=== PATIENT | female | born 1960 | race Caucasian/White ===

== ENCOUNTER 2020-09-11 06:25 | Outpatient (REF) | payer OTHER, SELFPAY ==
[2020-09-11 11:31] LABS: Alanine Aminotransferase 16 U/L (0-31); Anion Gap 16 (12-20); Aspartate Amino Transferase 13 U/L (5-31); Blood Urea Nitrogen 14 mg/dL (9-16); Calcium 9.2 mg/dL (8.4-10.2); Carbon Dioxide 29 mmol/L (22-29); Chloride 95 mmol/L (96-108); Cholesterol 142 mg/dL; Estimated Glomerular Filt Rate > 60; Glucose Fasting 143 mg/dL (60-99); HDL Cholesterol 52 mg/dL; LDL Cholesterol Calculated 61 mg/dl; Potassium 4.1 mmol/l (3.3-5.1); Sodium 136 mmol/L (135-145); Triglycerides 149 mg/dL
== END 2020-09-11 06:26 | disposition home or self-care (01) ==
LOC: HO.HMGCLDS 06:25
PROVIDERS: PCP Internal Medicine; Visit Provider Internal Medicine
DX: E11.9 Type 2 diabetes mellitus without complications (principal); E78.5 Hyperlipidemia, unspecified; E66.09 Other obesity due to excess calories; Z68.33 Body mass index [BMI] 33.0-33.9, adult
CPT/HCPCS: 80048; 80061; 84450; 84460

== ENCOUNTER 2021-02-19 06:01 | Outpatient (REF) | payer OTHER, SELFPAY ==
[2021-02-19 11:36] LABS: Alanine Aminotransferase 15 U/L (0-31); Anion Gap 17 (12-20); Aspartate Amino Transferase 12 U/L (5-31); Blood Urea Nitrogen 18 mg/dL (9-16); Calcium 9.2 mg/dL (8.4-10.2); Carbon Dioxide 30 mmol/L (22-29); Chloride 95 mmol/L (96-108); Cholesterol 140 mg/dL; Estimated Glomerular Filt Rate > 60; Glucose Fasting 151 mg/dL (60-99); HDL Cholesterol 52 mg/dL; LDL Cholesterol Calculated 59 mg/dl; Potassium 4.2 mmol/L (3.3-5.1); Sodium 138 mmol/L (135-145); Triglycerides 148 mg/dL
[2021-02-19 11:40] LABS: Estimated Average Glucose 151 mg/dL; Hemoglobin A1c % 6.9 %
[2021-02-19 11:58] LABS: Vitamin D 25-OH Total 79.7 ng/mL (>30)
== END 2021-02-19 06:02 | disposition home or self-care (01) ==
LOC: HO.HMGCLDS 06:01
PROVIDERS: PCP Internal Medicine; Visit Provider Internal Medicine
DX: E11.9 Type 2 diabetes mellitus without complications (principal); E78.5 Hyperlipidemia, unspecified; I10 Essential (primary) hypertension
CPT/HCPCS: 36415; 80048; 80061; 82306; 83036; 84450; 84460

== ENCOUNTER 2022-05-14 06:55 | Outpatient (REF) | payer OTHER, SELFPAY ==
[2022-05-14 11:59] LABS: Estimated Average Glucose 148 mg/dL; Hemoglobin A1c % 6.8 %
[2022-05-14 12:18] LABS: Alanine Aminotransferase 20 U/L (0-31); Anion Gap 16 (12-20); Aspartate Amino Transferase 15 U/L (5-31); Blood Urea Nitrogen 19 mg/dL (9-16); Calcium 9.6 mg/dL (8.4-10.2); Carbon Dioxide 28 mmol/L (22-29); Chloride 98 mmol/L (96-108); Cholesterol 150 mg/dL; Estimated Glomerular Filt Rate 57; Glucose Fasting 135 mg/dL (60-99); HDL Cholesterol 56 mg/dL; LDL Cholesterol Calculated 72 mg/dl; Potassium 4.6 mmol/L (3.3-5.1); Sodium 137 mmol/L (135-145); Triglycerides 112 mg/dL
== END 2022-05-14 06:56 | disposition home or self-care (01) ==
LOC: HO.HMGCLDS 06:55
PROVIDERS: Visit Provider Internal Medicine
DX: E11.9 Type 2 diabetes mellitus without complications (principal); I10 Essential (primary) hypertension; E78.5 Hyperlipidemia, unspecified
CPT/HCPCS: 36415; 80048; 80061; 83036; 84450; 84460

== ENCOUNTER 2022-08-30 06:12 | Outpatient (REF) | payer OTHER, SELFPAY ==
[2022-08-30 11:38] LABS: Estimated Average Glucose 143 mg/dL; Hemoglobin A1c % 6.6 %
[2022-08-30 11:52] LABS: Alanine Aminotransferase 16 U/L (0-31); Anion Gap 15 (12-20); Aspartate Amino Transferase 16 U/L (5-31); Blood Urea Nitrogen 15 mg/dL (9-16); Calcium 9.5 mg/dL (8.4-10.2); Carbon Dioxide 30 mmol/L (22-29); Chloride 96 mmol/L (96-108); Cholesterol 140 mg/dL; Estimated Glomerular Filt Rate > 60; Glucose Fasting 145 mg/dL (60-99); HDL Cholesterol 51 mg/dL; LDL Cholesterol Calculated 64 mg/dl; Potassium 4.4 mmol/L (3.3-5.1); Sodium 137 mmol/L (135-145); Triglycerides 126 mg/dL
[2022-08-30 12:14] LABS: Vitamin D 25-OH Total 78.2 ng/mL (>30)
== END 2022-08-30 06:13 | disposition home or self-care (01) ==
LOC: HO.HMGCLDS 06:12
PROVIDERS: PCP Internal Medicine; Visit Provider Internal Medicine
DX: Z00.01 Encounter for general adult medical examination with abnormal findings (principal); E11.9 Type 2 diabetes mellitus without complications; E78.5 Hyperlipidemia, unspecified; F41.1 Generalized anxiety disorder; I10 Essential (primary) hypertension; Z78.0 Asymptomatic menopausal state
CPT/HCPCS: 36415; 80048; 80061; 82306; 83036; 84450; 84460

== ENCOUNTER 2023-01-06 07:41 | Outpatient (REF) | payer OTHER, SELFPAY ==
[2023-01-06 12:02] LABS: Estimated Average Glucose 140 mg/dL; Hemoglobin A1c % 6.5 %
[2023-01-06 12:26] LABS: Alanine Aminotransferase 16 U/L (0-31); Anion Gap 15 (12-20); Aspartate Amino Transferase 15 U/L (5-31); Blood Urea Nitrogen 15 mg/dL (9-16); Calcium 9.4 mg/dL (8.4-10.2); Carbon Dioxide 29 mmol/L (22-29); Chloride 97 mmol/L (96-108); Cholesterol 142 mg/dL; Estimated Glomerular Filt Rate > 60; Glucose Fasting 140 mg/dL (60-99); HDL Cholesterol 53 mg/dL; LDL Cholesterol Calculated 63 mg/dl; Potassium 4.1 mmol/L (3.3-5.1); Sodium 137 mmol/L (135-145); Triglycerides 134 mg/dL
== END 2023-01-06 07:42 | disposition home or self-care (01) ==
LOC: HO.HMGCLDS 07:41
PROVIDERS: PCP Internal Medicine; Visit Provider Internal Medicine
DX: E78.5 Hyperlipidemia, unspecified (principal); I10 Essential (primary) hypertension; E11.9 Type 2 diabetes mellitus without complications
CPT/HCPCS: 36415; 80048; 80061; 82306; 83036; 84450; 84460

== ENCOUNTER 2023-01-20 11:37 | Outpatient (REF) | payer OTHER, SELFPAY ==
[2023-01-20 15:24] LABS: Creatinine Urine 27.69 mg/dL; Microalbumin Urine < 5.0 mg/L
== END 2023-01-20 11:38 | disposition home or self-care (01) ==
LOC: HO.HMGCLNP 11:37
PROVIDERS: Visit Provider Internal Medicine
DX: E78.5 Hyperlipidemia, unspecified (principal); I10 Essential (primary) hypertension; E11.9 Type 2 diabetes mellitus without complications
CPT/HCPCS: 82043

== ENCOUNTER 2023-05-21 06:16 | Outpatient (REF) | payer OTHER, SELFPAY ==
[2023-05-21 11:29] LABS: Estimated Average Glucose 131 mg/dL; Hemoglobin A1c % 6.2 %
[2023-05-21 11:42] LABS: Alanine Aminotransferase 16 U/L (0-31); Anion Gap 12 (12-20); Aspartate Amino Transferase 16 U/L (5-31); Blood Urea Nitrogen 22 mg/dL (9-16); Calcium 9.8 mg/dL (8.4-10.2); Carbon Dioxide 28 mmol/L (22-29); Chloride 95 mmol/L (96-108); Cholesterol 133 mg/dL; Estimated Glomerular Filt Rate 57; Glucose Fasting 130 mg/dL (60-99); HDL Cholesterol 47 mg/dL; LDL Cholesterol Calculated 67 mg/dl; Sodium 131 mmol/L (135-145); Triglycerides 96 mg/dL
== END 2023-05-21 06:17 | disposition home or self-care (01) ==
LOC: HO.HMGCLDS 06:16
PROVIDERS: PCP Internal Medicine; Visit Provider Internal Medicine
DX: I10 Essential (primary) hypertension (principal); E78.5 Hyperlipidemia, unspecified; E11.9 Type 2 diabetes mellitus without complications
CPT/HCPCS: 36415; 80048; 80061; 83036; 84450; 84460

== ENCOUNTER 2023-09-05 07:35 | Outpatient (REF) | payer OTHER, SELFPAY ==
[2023-09-05 12:37] LABS: Estimated Average Glucose 128 mg/dL; Hemoglobin A1c % 6.1 % (<6.0)
[2023-09-05 13:05] LABS: Alanine Aminotransferase 12 U/L (0-31); Anion Gap 16 (12-20); Aspartate Amino Transferase 16 U/L (5-31); Blood Urea Nitrogen 16 mg/dL (9-16); Carbon Dioxide 28 mmol/L (22-29); Chloride 96 mmol/L (96-108); Cholesterol 142 mg/dL (<200); Estimated Glomerular Filt Rate 60; Glucose Fasting 114 mg/dL (60-99); HDL Cholesterol 52 mg/dL (>40); LDL Cholesterol Calculated 70 mg/dL (<100); Sodium 136 mmol/L (135-145); Triglycerides 102 mg/dL (<150); Vitamin D 25-OH Total 80.1 ng/mL (>30)
== END 2023-09-05 07:36 | disposition home or self-care (01) ==
LOC: HO.HMGCLDS 07:35
PROVIDERS: PCP Internal Medicine; Visit Provider Internal Medicine
DX: Z00.01 Encounter for general adult medical examination with abnormal findings (principal); H91.93 Unspecified hearing loss, bilateral; H47.22 Hereditary optic atrophy; E11.9 Type 2 diabetes mellitus without complications; I10 Essential (primary) hypertension; E78.5 Hyperlipidemia, unspecified; F41.1 Generalized anxiety disorder
CPT/HCPCS: 36415; 80048; 80061; 82306; 83036; 84450; 84460

== ENCOUNTER 2023-09-10 10:58 | Outpatient (AMB) | payer OTHER, SELFPAY ==
--- NOTE | 2023-09-10 12:06 | A.OFFPC_ITS ---
Vital Signs 09/10/23 12:07 Height 5 ft 1 in Weight 146 lb 8 oz BMI 27.7 BP 126/70 Blood Pressure Location Lt brachial Position Sitting Pulse 71 Pulse Source Pulse Oximeter Pulse Oximetry (%) 100 Oxygen Delivery Method Room Air Intake Visit Reasons: 4 month follow up Intake Note: pt is here to go over her lab results Allergies No Known Allergies Allergy (Verified 09/11/23 01:49) Medication List - Last Reconciled 09/10/23 by Paloma Benítez MD albuterol sulfate 90 mcg/actuation 2 puffs inhalation Q6H PRN aspirin (Adult Aspirin Regimen) 81 mg PO DAILY atorvastatin 20 mg PO DAILY buspirone 5 mg PO BID cholecalciferol (vitamin D3) 25 mcg PO DAILY docusate sodium (Stool Softener) 100 mg PO DAILY lisinopril-hydrochlorothiazide 20-25 mg 1 tab PO DAILY loratadine (Claritin) 10 mg PO DAILY metformin 1,000 mg PO BID multivitamin 1 tab PO DAILY netarsudil-latanoprost 0.02-0.005 % (Rocklatan) 1 drp ophthalmic (eye) QPM omega-3 fatty acids (Fish Oil Concentrate) 1,000 mg PO DAILY propylene glycol 0.6% (Systane Complete) 1 drp ophthalmic (eye) DAILY PRN Tobacco use date assessed: 09/10/23 Dental Screening Dental Screen Date: 09/10/23 Did you have a dental visit in the last 12 months?: Yes Did you have a dental problem in the last 6 months where you did not have access to dental care?: No Was dental information given to patient?: Patient has dentist HPI 4 month follow up HPI Details 62-year-old lady here today for her lipi ds, diabetes mellitus, hyperlipidemia and generalized anxiety disorder. She has been trying to adhere to recommended diet, but admits to not getting any regular exercise. Fasting labs however showed diabetes mellitus and cholesterol levels are well controlled on present treatment. e [facility] Medical History Decreased hearing of both ears Dyslipidemia Generalized anxiety disorder Lebers optic atrophy Type 2 diabetes mellitus without complication, without long-term current use of insulin Hyperlipidemia Essential hypertension Surgical History [place] teeth extracted Family History Father Brain cancer Lung cancer Mental health disorder Mother HTN (hypertension) Diabetes mellitus Breast cancer Sister HTN (hypertension) Skin cancer Paternal Grandfather Stomach cancer Maternal Aunt Multiple sclerosis Brother No problems noted. Sister No problems noted. Sister No problems noted. Social History Housing: House Alcohol intake: former Patient Tobacco Use Status: Former Tobacco user e-Cigarette/Vaping Use: Never Used Current occupational status: employed Cognitive needs: No Hearing needs: No Vision needs: Yes Questionnaire PHQ-9 Over the last 2 weeks, how often have you been bothered by any of the following problems? Depression Screening Interpretation: Negative Depression Screening Done: Yes Source: Developed by Drs. William Merino, Omaira Proctor, Aaron Judd and colleagues, with an educational palomo from [employer]. Thrive Questionnaire Date Thrive assessed: 05/23/23 NOELLE-7 AMB Questionnaire NOELLE-7 Date NOELLE - 7 assessed: 05/23/23 Source: Developed by Drs. William Merino, Omaira Proctor, Aaron Judd and colleagues, with an educational palomo from [employer]. Review of Systems Const Denies body aches, Denies fatigue, Denies fever(s), Denies headache(s) and Denies weakness Eyes Reports no additional complaints ENT Denies dizziness, Denies headache(s), Denies nasal congestion and Denies sore throat Card Denies chest pain, Denies lightheadedness, Denies palpitations and Denies dyspnea Resp Details: Complains of intermittent episodes of wheezing especially after a cold or after moderate exertion Denies chest congestion, Denies cough and Denies dyspnea GI Denies abdominal pain, Denies change in bowel habits and Denies heartburn Denies urinary frequency, Denies dysuria and Denies urinary urgency Musc Reports no additional complaints Skin/Breast Denies lesions and Denies rash Neuro Denies dizziness, Denies headache(s) and Denies weakness Psych Reports as per HPI Endo Denies fatigue, Denies polydipsia, Denies polyuria and Denies palpitations Dane/Lymph Denies easy bruising Aller/Immun Denies seasonal rhinorrhea Physical exam (Primary Care) Vital Signs: Last Vital Signs Pulse 71 09/10/23 12:07 BP 126/70 09/10/23 12:07 Pulse Ox 100 09/10/23 12:07 Oxygen Delivery Method Room Air 09/10/23 12:07 BMI result Body Mass Index 27.7 Tobacco/Smoking Status: Tobacco use Status Tobacco use date assessed 09/10/23 09/10/23 12:14 Patient Tobacco Use Status Former Tobacco user 09/10/23 12:07 e-Cigarette/Vaping Use Never Used 09/10/23 12:07 Depression Screening Interpretation: Negative Thrive Assessment: Date of Thrive Assessment Date Thrive assessed 05/23/23 09/10/23 12:07 Const General: comfortable, no acute distress and alert Orientation/consciousness: patient oriented x3 HENMT Mouth: Normal oral and palatal mucosa present and moist mucous membranes Eyes General: appearance normal, both eyes and all related structures Neck Neck: Yes full ROM, Yes no lymphadenopathy and Yes supple Resp Effort & Inspection: normal respiratory effort and able to speak in complete sentences Auscultation: clear to auscultation bilaterally Cardio Rate: regular rate Rhythm: regular rhythm Heart sounds: S1 normal heart sound present and S2 normal heart sound present GI Palpation (GI): Soft to palpation, nontender and no masses Auscultation: normal bowel sounds General: Yes no CVA tenderness Back/Spine/Pelvis Back: no CVA tenderness and No back tenderness Skin General skin exam: no rashes or lesions noted Neuro General: patient oriented x3, gait normal, tone normal, moves all extremities, Normal light touch and pain sensation and no focal motor deficits Cranial nerves: Yes CN's II-XII intact bilaterally Cognition (Neuro): normal cognition Extrem General: Yes full ROM, Yes no joint enlargement, Yes no clubbing, cyanosis or edema and Yes no calf tenderness Psych Appearance: grossly normal and well kempt Mental Status: mental status grossly normal Speech and movement: Normal speech and movement present Affect: normal affect Attitude: cooperative Thought process: Normal thought process present Thought content: Normal thought content present Office Procedures Flu Questionnaire Does the patient have a severe egg allergy?: No Does the patient have severe life threatening allergies?: No Does the patient have a fever or illness today?: No Has the patient ever had Guillain-[place] Syndrome?: No Has the patient ever had any past reaction to a flu shot?: No Immunizations flu vacc [id number] 6mos up(PF) 60 mcg(15 mcgx4)/0.5 mL IM syringe Performing Provider: Paloma Benítez MD [facility] Administered by: She Beasley CMA on 09/10/23 12:20 Dose Route Admin Location Dispensed Lot Number Expiration Date NDC Sample Room Supervisor 0.5 mL IM Left Deltoid 0.5 mL [id number] 05/23/24 [id number] [employer] Given Date VIS Provided VIS Publication Date 09/10/23 Single Vaccine 21 Eligibility Eligibility Date Funding Source Not VFC Eligible 09/10/23 Private Results Reviewed Results Reviewed: RUN: 09/11/23 0153 PAGE 1 [facility] [address] [place] [id number] Supervisor [employer]: Oliver Medeiros M.D. Specimen Inquiry Name: Ana Johns Age/Sex: 62/F : 1960 Unit#: [id number] Attend Dr: Paloma Benítez MD Re09/05/23 Status: DEP [facility] Disch: SPEC : [id number] FRANCIA: 09/05/23 STATUS: COMP REQ : [id number] RECD: 09/05/[address]: Paloma Benítez MD COMP: 09/05/23 ENTERED: 09/05/[address] [facility] [address]: ORDERED: Met Prof Fast, AST, ALT, Lipid Panel, Vitamin D 25-OH Test Result Flag Reference Site Sodium 136 135-145 mmol/L Potassium 4.0 3.3-5.1 mmol/L CL 96 96-108 mmol/L CO2 28 22-29 mmol/L Gap 16 12-20 BUN 16 9-16 mg/dL Creat 0.95 0.5-1.4 mg/dL EGFR 60 NOTE: For -Ivor[place] individuals, multiply the result by 1.210. Chronic Kidney Disease: Estimated GFR < 60 mL/min/1.73m2 Severe Kidney Disease: Estimated GFR < 15 mL/min/1.73m2 FBS 114 H 60-99 mg/dL A fasting glucose from 100-125 mg/dl is considered impaired (pre-diabetes). CA 10.0 8.4-10.2 mg/dL AST (GOT) 16 5-31 U/L ALT (GPT) 12 0-31 U/L Triglyceride 102 <150 mg/dL Desirable Triglyceride: less than 150 mg/dL Borderline High Triglyceride 150-199 mg/dL High Triglyceride: 200-499 mg/dL Very High Triglyceride: greater than or equal to 5OO mg/dL Cholesterol 142 <200 mg/dL Desirable Cholesterol: less than 200 mg/dL Borderline High Cholesterol: 200-239 mg/dL High Cholesterol: greater than 239 mg/dL LDL Calculated 70 <100 mg/dL Desirable LDL: less than 100 mg/dL Near Optimal/Above Optimal LDL: 110-129 mg/dL Borderline High LDL: 130-159 mg/dL High LDL: 160-189 mg/dL Very High LDL: greater than or equal to 190 mg/dL HDL 52 >40 mg/dL Desirable HDL: greater than 40 mg/dL Note: This HDL assay may give artificially low results in patients with liver disease. Vit D 25-OH Tot 80.1 >30 ng/mL Health Based Reference Values* < 20 ng/mL Deficient 20-30 ng/mL Insufficient > 30 ng/mL Sufficient Laboratory Tests 09/05/23 07:37 Estimat Average Glucose 128 Hemoglobin A1c % 6.1 H Assessment and Plan Assessment & Plan (1) Dyslipidemia: Code(s): E78.5 - Hyperlipidemia, unspecified Plan: Reviewed recent fasting lipid profile with patient with levels within normal limits . Continue with atorvastatin 20 mg daily and [place] 3 fatty acid supplements , in addition to adherence to low-cholesterol diet and regular exercise, at least 30 minutes 3 to 4 times a week. Advised patient to make healthy food choices, eat more fruits, vegetables, whole grains, wild caught fish and low-fat dairy. Limit amount of meat and fried or fatty food products, as well as processed foods and fast foods. Follow-up scheduled with repeat fasting lipid panel in months. (2) Generalized anxiety disorder: Code(s): F41.1 - Generalized anxiety disorder Plan: Continue with buspirone 5 mg 1 tablet taken twice a day (3) Type 2 diabetes mellitus without complication, without long-term current use of insulin: Code(s): E11.9 - Type 2 diabetes mellitus without complications Plan: Recent lab results reviewed with patient, with sugar and hemoglobin A1c stable and at goal continue to check fasting blood sugar at home, maintain log and bring to next appointment for review. Reinforced diabetic diet and regular exercise with patient. Counseled regarding importance of yearly diabetes retinopathy screening. Patient advised to inspect feet daily, for any signs of injury, callus or infection. Compliance with diet and regular exercise again stressed. Blood pressure goal is less than 130/80, goal LDL is less than 100 and goal hemoglobin A1c is less than 7% . Flu vaccine given today, reminded to get her COVID booster (4) Essential hypertension: Code(s): I10 - Essential (primary) hypertension Plan: Blood pressure at goal of less than 130/80. Continue with current medication. Reinforced importance of following a low sodium diet, getting regular exercise, and lowering stress levels. (5) Reactive airway disease with wheezing: Code(s): J45.909 - Unspecified asthma, uncomplicated Plan: Prescription sent for albuterol inhaler to use as directed. Orders: Orders Influenza [id number] Immunization 09/10/23 Z23 - Encounter for immunization Medications: New albuterol sulfate 90 mcg/actuation 2 puffs inhalation Q6H PRN 8.5 grams 0RF shortness of breath or wheezing Coding Level of Care Code Est Pt Level 4 (94766) Diagnoses Dyslipidemia E78.5 Generalized anxiety disorder F41.1 Type 2 diabetes mellitus without complication, without long-term current use of insulin E11.9 Essential hypertension I10 Reactive airway disease with wheezing J45.909
[2023-09-10 12:07] VITALS: BP 126/70; PULSE 71; O2SAT 100; BMI 27.7
== END 2023-09-10 12:55 | disposition home or self-care (01) ==
PROVIDERS: PCP Internal Medicine; Visit Provider Internal Medicine
DX: Z23 Encounter for immunization (principal)
CPT/HCPCS: 90471; 90686; 99214

== ENCOUNTER 2024-02-07 08:27 | Outpatient (REF) | payer OTHER, SELFPAY ==
[2024-02-07 12:00] LABS: Hematocrit 38.6 % (37.0-47.0); Hemoglobin 12.9 g/dl (12.0-16.0)
[2024-02-07 12:10] LABS: Estimated Average Glucose 126 mg/dL
[2024-02-07 12:38] LABS: Alanine Aminotransferase 14 U/L (0-31); Anion Gap 14 (12-20); Aspartate Amino Transferase 15 U/L (5-31); Blood Urea Nitrogen 20 mg/dL (9-16); Calcium 9.3 mg/dL (8.4-10.2); Carbon Dioxide 28 mmol/L (22-29); Chloride 101 mmol/L (96-108); Cholesterol 140 mg/dL (<200); Estimated Glomerular Filt Rate > 60; Glucose Fasting 114 mg/dL (60-99); HDL Cholesterol 56 mg/dL (>40); LDL Cholesterol Calculated 66 mg/dL (<100); Potassium 4.5 mmol/L (3.3-5.1); Sodium 138 mmol/L (135-145); Triglycerides 90 mg/dL (<150)
[2024-02-07 12:54] LABS: Vitamin D 25-OH Total 83.3 ng/mL (>30)
== END 2024-02-07 08:28 | disposition home or self-care (01) ==
LOC: HO.HMGCLDS 08:27
PROVIDERS: PCP Internal Medicine; Visit Provider Internal Medicine
DX: E11.9 Type 2 diabetes mellitus without complications (principal); I10 Essential (primary) hypertension; E78.5 Hyperlipidemia, unspecified; Z78.0 Asymptomatic menopausal state
CPT/HCPCS: 36415; 80048; 80061; 82306; 83036; 84450; 84460; 85014; 85018

== ENCOUNTER 2024-02-12 10:28 | Outpatient (AMB) | payer OTHER, SELFPAY ==
--- NOTE | 2024-02-12 10:36 | A.OFFPC_ITS ---
Vital Signs 02/12/24 10:50 Height 5 ft 1 in Weight 145 lb BMI 27.4 BP 114/68 Blood Pressure Location Lt brachial Position Sitting Pulse 95 Pulse Source Pulse Oximeter Pulse Oximetry (%) 99 Oxygen Delivery Method Room Air Intake Visit Reasons: 5 month follow up Intake Note: Pt is here today for her 5 months f/u Allergies No Known Allergies Allergy (Verified 02/12/24 11:07) Medication List - Last Reconciled 02/12/24 by Paloma Benítez MD albuterol sulfate 90 mcg/actuation 2 puffs inhalation Q6H PRN aspirin (Adult Aspirin Regimen) 81 mg PO DAILY atorvastatin 20 mg PO DAILY buspirone 5 mg PO DAILY cholecalciferol (vitamin D3) 25 mcg PO DAILY docusate sodium (Stool Softener) 100 mg PO DAILY lisinopril-hydrochlorothiazide 20-25 mg 1 tab PO DAILY loratadine (Claritin) 10 mg PO DAILY PRN metformin 1,000 mg PO BID multivitamin 1 tab PO DAILY netarsudil-latanoprost 0.02-0.005 % (Rocklatan) 1 drp ophthalmic (eye) QPM omega-3 fatty acids (Fish Oil Concentrate) 1,000 mg PO DAILY propylene glycol 0.6% (Systane Complete) 1 drp ophthalmic (eye) DAILY PRN Tobacco use date assessed: 02/12/24 Dental Screening Dental Screen Date: 02/12/24 Did you have a dental visit in the last 12 months?: Yes Did you have a dental problem in the last 6 months where you did not have access to dental care?: No Was dental information given to patient?: Patient has dentist HPI 5 month follow up HPI Details 63-year-old lady with type 2 diabetes me llitus, hyperlipidemia, hypertension, generalized anxiety disorder with history of Lebers optic atrophy, here today for her follow-up. She has been feeling well, with no complaints at present time. [facility] Medical History Decreased hearing of both ears Dyslipidemia Generalized anxiety disorder Lebers optic atrophy Type 2 diabetes mellitus without complication, without long-term current use of insulin Hyperlipidemia Essential hypertension Surgical History Philo teeth extracted Family History Father Brain cancer Lung cancer Mental health disorder Mother HTN (hypertension) Diabetes mellitus Breast cancer Sister HTN (hypertension) Skin cancer Paternal Grandfather Stomach cancer Maternal Aunt Multiple sclerosis Brother No problems noted. Sister No problems noted. Sister No problems noted. Social History Housing: House Alcohol intake: former Patient Tobacco Use Status: Former Tobacco user e-Cigarette/Vaping Use: Never Used Current occupational status: employed Cognitive needs: No Hearing needs: No Vision needs: Yes Questionnaire PHQ-9 Over the last 2 weeks, how often have you been bothered by any of the following problems? 1. Little interest or pleasure in doing things: not at all 2. Feeling down, depressed, or hopeless: not at all 3. Trouble falling or staying asleep, or sleeping too much: not at all 4. Feeling tired or having little energy: not at all 5. Poor appetite or overeating: not at all 6. Feeling bad about yourself - or that you are a failure or have let yourself or your family down: not at all 7. Trouble concentrating on things, such as reading the newspaper or watching television: not at all 8. Moving or speaking so slowly that other people could have noticed. Or the opposite - being so fidgety or restless that you have been moving around a lot more than usual: not at all 9. Thoughts that you would be better off or of hurting yourself in some way: not at all Total score: 0 Depression Screening Interpretation: Negative Depression Screening Done: Yes 05710 - PHQ-9 Billing: Yes Source: Developed by Drs. William Merino, Omaira Proctor, Aaron Judd and colleagues, with an educational palomo from [employer]. Thrive Questionnaire Date Thrive assessed: 02/12/24 I am a: Patient What is your living situation today?: I have a steady place to live Within the past 12 months, did the food you bought not last and you didn't have the money to get more?: Never true Within the past 12 months, did you worry whether your food would run out before you got money to buy more?: Never true Do you have trouble paying for medicines?: No Do you have trouble getting transportation to medical appointments?: No Do you have trouble paying your heating and electricity bill?: No Do you have trouble taking care of your child, family member or friend?: No Do you have trouble with day-to-day activities such as bathing, preparing meals, shopping, managing finances, etc.?: No Are you currently unemployed and looking for a job?: No Are you interested in more education?: No THRIVE Score: 0 AUDIT C Alcohol Use Questionnaire (AUDIT-C) 1. How often do you have a drink containing alcohol?: Never Total Score: 0 NOELLE-7 AMB Questionnaire NOELLE-7 Date NOELLE - 7 assessed: 02/12/24 Feeling nervous, anxious, or on edge: 0 = Not at all Not being able to stop or control worryin = Several days Worrying too much about different things: 1 = Several days Trouble relaxin = Not at all Being so restless that it is hard to sit still: 0 = Not at all Becoming easily annoyed or irritable: 1 = Several days Feeling afraid as if something awful might happen: 1 = Several days Total NOELLE-7 score (0-4 normal; 5-9 mild; 10-14 moderate; 15-21 severe): 4 Source: Developed by Drs. William Merino, Omaira Proctor, Aaron Judd and colleagues, with an educational palomo from [employer]. NOELLE-7 Assessment Billing NOELLE-7 Assessment Tool: NOELLE-7 Assessment 64598 Review of Systems Const Denies body aches, Denies fatigue, Denies fever(s), Denies headache(s) and Denies weakness Eyes Reports no additional complaints ENT Denies dizziness, Denies headache(s), Denies nasal congestion and Denies sore throat Card Denies chest pain, Denies lightheadedness, Denies palpitations and Denies dyspnea Resp Denies chest congestion, Denies cough and Denies dyspnea GI Denies abdominal pain, Denies change in bowel habits and Denies heartburn Denies urinary frequency, Denies dysuria and Denies urinary urgency Musc Reports no additional complaints Skin/Breast Denies lesions and Denies rash Neuro Denies dizziness, Denies headache(s) and Denies weakness Psych Reports as per HPI Endo Denies fatigue, Denies polydipsia, Denies polyuria and Denies palpitations Dane/Lymph Denies easy bruising Aller/Immun Denies seasonal rhinorrhea Physical exam (Primary Care) Vital Signs: Last Vital Signs Pulse 95 02/12/24 10:50 BP 114/68 02/12/24 10:50 Pulse Ox 99 02/12/24 10:50 Oxygen Delivery Method Room Air 02/12/24 10:50 BMI result Body Mass Index 27.4 Tobacco/Smoking Status: Tobacco use Status Tobacco use date assessed 02/12/24 02/12/24 10:38 Patient Tobacco Use Status Former Tobacco user 02/12/24 10:38 e-Cigarette/Vaping Use Never Used 02/12/24 10:38 PHQ-9: PHQ-9 Score PHQ-9: Total score 0 02/12/24 11:13 Depression Screening Interpretation: Negative Thrive Assessment: Date of Thrive Assessment Date Thrive assessed 02/12/24 02/12/24 11:13 Const General: no acute distress and alert Orientation/consciousness: patient oriented x3 HENMT Mouth: Normal oral and palatal mucosa present and moist mucous membranes Eyes General: appearance normal, both eyes and all related structures Neck Neck: Yes full ROM, Yes no lymphadenopathy and Yes supple Resp Effort & Inspection: normal respiratory effort and able to speak in complete sentences Auscultation: clear to auscultation bilaterally Cardio Rate: regular rate Rhythm: regular rhythm Heart sounds: S1 normal heart sound present and S2 normal heart sound present GI Palpation (GI): Soft to palpation, nontender and no masses Auscultation: normal bowel sounds General: Yes no CVA tenderness Back/Spine/Pelvis Back: no CVA tenderness and No back tenderness Skin General skin exam: no rashes or lesions noted Neuro General: patient oriented x3, gait normal, tone normal, moves all extremities, Normal light touch and pain sensation and no focal motor deficits Cranial nerves: Yes CN's II-XII intact bilaterally Cognition (Neuro): normal cognition Extrem General: Yes full ROM, Yes no joint enlargement, Yes no clubbing, cyanosis or edema and Yes no calf tenderness Psych Appearance: grossly normal and well kempt Mental Status: mental status grossly normal Speech and movement: Normal speech and movement present Affect: normal affect Attitude: cooperative Thought process: Normal thought process present Thought content: Normal thought content present Results Reviewed Results Reviewed: Laboratory Tests 02/07/24 09:15 Hgb 12.9 Hct 38.6 Estimat Average Glucose 126 Hemoglobin A1c % 6.0 Name: Ana Johns Age/Sex: 63/F : 1960 Unit#: [id number] Attend Dr: Paloma Benítez MD Re02/07/24 Status: DEP REF Location: [facility] Disch: SPEC : [id number] FRANCIA: 02/07/24 STATUS: COMP REQ : [id number] RECD: 02/07/24-[address]: Paloma Benítez MD COMP: 02/07/24 ENTERED: 02/07/[address]: ORDERED: Met Prof Fast, AST, ALT, Lipid Panel, Vitamin D 25-OH Test Result Flag Reference Sodium 138 135-145 mmol/L Potassium 4.5 3.3-5.1 mmol/L CL 101 96-108 mmol/L CO2 28 22-29 mmol/L Gap 14 12-20 BUN 20 H 9-16 mg/dL Creat 0.89 0.5-1.4 mg/dL EGFR > 60 NOTE: For -[place] individuals, multiply the result by 1.210. Chronic Kidney Disease: Estimated GFR < 60 mL/min/1.73m2 Severe Kidney Disease: Estimated GFR < 15 mL/min/1.73m2 FBS 114 H 60-99 mg/dL A fasting glucose from 100-125 mg/dl is considered impaired (pre-diabetes). CA 9.3 # 8.4-10.2 mg/dL AST (GOT) 15 5-31 U/L ALT (GPT) 14 0-31 U/L Triglyceride 90 <150 mg/dL Desirable Triglyceride: less than 150 mg/dL Borderline High Triglyceride 150-199 mg/dL High Triglyceride: 200-499 mg/dL Very High Triglyceride: greater than or equal to 5OO mg/dL Cholesterol 140 <200 mg/dL Desirable Cholesterol: less than 200 mg/dL Borderline High Cholesterol: 200-239 mg/dL High Cholesterol: greater than 239 mg/dL LDL Calculated 66 <100 mg/dL Desirable LDL: less than 100 mg/dL Near Optimal/Above Optimal LDL: 110-129 mg/dL Borderline High LDL: 130-159 mg/dL High LDL: 160-189 mg/dL Very High LDL: greater than or equal to 190 mg/dL HDL 56 >40 mg/dL Desirable HDL: greater than 40 mg/dL Note: This HDL assay may give artificially low results in patients with liver disease. Vit D 25-OH Tot 83.3 >30 ng/mL Health Based Reference Values* < 20 ng/mL Deficient 20-30 ng/mL Insufficient > 30 ng/mL Sufficient Assessment and Plan Assessment & Plan (1) Lebers optic atrophy: Comment: currently being followed by [facility] in [place] Code(s): H47.22 - Hereditary optic atrophy Plan: Followed by ophthalmology yearly currently using Systane and Rocklatan eye drops (2) Type 2 diabetes mellitus without complication, without long-term current use of insulin: Code(s): E11.9 - Type 2 diabetes mellitus without complications Plan: Recent lab results reviewed with patient, with sugar and hemoglobin A1c stable and at goal. Continue metformin to a 1000 mg 1 tablet twice a day with meals, continue to check fasting blood sugar at home, maintain log and bring to next appointment for review. Reinforced diabetic diet and regular exercise with patient. Up-to-date with her yearly diabetes retinopathy screening. Patient advised to inspect feet daily, for any signs of injury, callus or infection. Compliance with diet and regular exercise again stressed. Blood pressure goal is less than 130/80, goal LDL is less than 100 and goal hemoglobin A1c is less than 7% follow-up appointment made in--4-months, after fasting labs done. (3) Essential hypertension: Code(s): I10 - Essential (primary) hypertension Plan: Blood pressure at goal of less than 130/80. Continue lisinopril- hydrochlorothiazide 20-25 mg 1 tablet daily in a.m. Reinforced importance of following a low sodium diet, getting regular exercise, and lowering stress levels. (4) Dyslipidemia: Code(s): E78.5 - Hyperlipidemia, unspecified Plan: Reviewed recent fasting lipid profile with patient with levels within normal limit . Continue atorvastatin 20 mg daily , in addition to adherence to low-cholesterol diet and regular exercise, at least 30 minutes 3 to 4 times a week. Advised patient to make healthy food choices, eat more fruits, vegetables, whole grains, wild caught fish and low-fat dairy. Limit amount of meat and fried or fatty food products, as well as processed foods and fast foods. Follow-up scheduled with repeat fasting lipid panel in 4 month (5) Generalized anxiety disorder: Code(s): F41.1 - Generalized anxiety disorder Plan: Continue with buspirone 5 mg 1 tablet taken in the morning Orders: Orders Hemoglobin A1c 06/06/24 E11.9 - Type 2 diabetes mellitus without complications, E78.5 - Hyperlipidemia, unspecified, F41.1 - Generalized anxiety disorder, H47.22 - Hereditary optic atrophy, I10 - Essential (primary) hypertension Alanine Aminotransferase 06/06/24 E11.9 - Type 2 diabetes mellitus without complications, E78.5 - Hyperlipidemia, unspecified, F41.1 - Generalized anxiety disorder, H47.22 - Hereditary optic atrophy, I10 - Essential (primary) hypertension Aspartate Amino Transferase 06/06/24 E11.9 - Type 2 diabetes mellitus without complications, E78.5 - Hyperlipidemia, unspecified, F41.1 - Generalized anxiety disorder, H47.22 - Hereditary optic atrophy, I10 - Essential (primary) hypertension Vitamin D 25-OH Total 06/06/24 E11.9 - Type 2 diabetes mellitus without complications, E78.5 - Hyperlipidemia, unspecified, F41.1 - Generalized anxiety disorder, H47.22 - Hereditary optic atrophy, I10 - Essential (primary) hypertension Basic Metabolic Panel Fasting 06/06/24 E11.9 - Type 2 diabetes mellitus without complications, E78.5 - Hyperlipidemia, unspecified, F41.1 - Generalized anxiety disorder, H47.22 - Hereditary optic atrophy, I10 - Essential (primary) hypertension Lipid Panel 06/06/24 E11.9 - Type 2 diabetes mellitus without complications, E78.5 - Hyperlipidemia, unspecified, F41.1 - Generalized anxiety disorder, H47.22 - Hereditary optic atrophy, I10 - Essential (primary) hypertension Microalbumin, Random (w Creat) 06/06/24 E11.9 - Type 2 diabetes mellitus without complications, E78.5 - Hyperlipidemia, unspecified, F41.1 - Generalized anxiety disorder, H47.22 - Hereditary optic atrophy, I10 - Essential (primary) hypertension Coding Level of Care Code Est Pt Level 4 (90364) Diagnoses Lebers optic atrophy H47.22 Type 2 diabetes mellitus without complication, without long-term current use of insulin E11.9 Essential hypertension I10 Dyslipidemia E78.5 Generalized anxiety disorder F41.1 Additional Codes NOELLE-7 Assessment Billing - NOELLE-7 Assessment Tool: NOELLE-7 Assessment 56390 ([id number])
[2024-02-12 10:50] VITALS: BP 114/68; PULSE 95; O2SAT 99; BMI 27.4
== END 2024-02-12 11:29 | disposition home or self-care (01) ==
PROVIDERS: PCP Internal Medicine; Visit Provider Internal Medicine
DX: E11.69 Type 2 diabetes mellitus with other specified complication (principal); H47.22 Hereditary optic atrophy; I10 Essential (primary) hypertension; E78.5 Hyperlipidemia, unspecified; F41.1 Generalized anxiety disorder
CPT/HCPCS: 99214

== ENCOUNTER 2024-06-18 07:55 | Outpatient (REF) | payer OTHER, SELFPAY ==
[2024-06-18 10:59] LABS: Estimated Average Glucose 128 mg/dL; Hemoglobin A1c % 6.1 % (<6.0)
[2024-06-18 11:20] LABS: Alanine Aminotransferase 13 U/L (0-31); Anion Gap 18 (12-20); Aspartate Amino Transferase 16 U/L (5-31); Blood Urea Nitrogen 36 mg/dL (9-16); Calcium 9.4 mg/dL (8.4-10.2); Carbon Dioxide 25 mmol/L (22-29); Chloride 98 mmol/L (96-108); Cholesterol 160 mg/dL (<200); Estimated Glomerular Filt Rate 47; Glucose Fasting 106 mg/dL (60-99); HDL Cholesterol 61 mg/dL (>40); LDL Cholesterol Calculated 79 mg/dL (<100); Sodium 136 mmol/L (135-145); Triglycerides 103 mg/dL (<150); Vitamin D 25-OH Total 133.3 ng/mL (>30)
== END 2024-06-18 07:56 | disposition home or self-care (01) ==
LOC: HO.HMGCLDS 07:55
PROVIDERS: PCP Internal Medicine; Visit Provider Internal Medicine
DX: H47.22 Hereditary optic atrophy (principal); E11.9 Type 2 diabetes mellitus without complications; I10 Essential (primary) hypertension; E78.5 Hyperlipidemia, unspecified; F41.1 Generalized anxiety disorder
CPT/HCPCS: 36415; 80048; 80061; 82306; 83036; 84450; 84460

== ENCOUNTER 2024-06-21 11:04 | Outpatient (AMB) | payer OTHER, SELFPAY ==
--- NOTE | 2024-06-21 11:46 | MHC.PC.OV ---
Vital Signs 06/21/24 11:47 Height 5 ft 1 in Weight 149 lb 8 oz BMI 28.2 BP 122/78 Blood Pressure Location Rt brachial Position Sitting Pulse 95 Pulse Source Pulse Oximeter Pulse Oximetry (%) 97 Intake Visit Reasons: PE Intake Note: pt is here for physical exam last pap: unsure last mammo: due last colonoscopy: cologaurd done within year per patient Counter Dish Carrier Required: No Accompanied by: Self / Same As Patient Allergies No Known Allergies Allergy (Verified 06/21/24 12:04) Medication List - Last Reconciled 06/21/24 by Paloma Benítez MD albuterol sulfate 90 mcg/actuation 2 puffs inhalation Q6H PRN aspirin (Adult Aspirin Regimen) 81 mg PO DAILY atorvastatin 20 mg PO DAILY buspirone 5 mg PO DAILY cholecalciferol (vitamin D3) 25 mcg PO DAILY docusate sodium (Stool Softener) 100 mg PO DAILY lisinopril-hydrochlorothiazide 20-25 mg 1 tab PO DAILY loratadine (Claritin) 10 mg PO DAILY PRN metformin 1,000 mg PO BID multivitamin 1 tab PO DAILY netarsudil-latanoprost 0.02-0.005 % (Rocklatan) 1 drp ophthalmic (eye) QPM omega-3 fatty acids (Fish Oil Concentrate) 1,000 mg PO DAILY propylene glycol 0.6% (Systane Complete) 1 drp ophthalmic (eye) DAILY PRN Tobacco use date assessed: 02/12/24 Dental Screening Dental Screen Date: 02/12/24 HPI PE HPI Details 63-year-old lady here today for physical exam. She has diabetes mellitus currently on metformin 1000 mg 1 tablet twice a day, and takes atorvastatin for her hyperlipidemia, and is on lisinopril-HCTZ for her hypertension which is currently stable controlled on present treatment. Overdue for her breast cancer screening and cervical cancer screening, patient states that she had Cologuard test done this year but I did not see any results in her chart [facility] Medical History Decreased hearing of both ears Dyslipidemia Generalized anxiety disorder Lebers optic atrophy Type 2 diabetes mellitus without complication, without long-term current use of insulin Hyperlipidemia Essential hypertension Surgical History Wake teeth extracted Family History Father Brain cancer Lung cancer Mental health disorder Mother HTN (hypertension) Diabetes mellitus Breast cancer Sister HTN (hypertension) Skin cancer Paternal Grandfather Stomach cancer Maternal Aunt Multiple sclerosis Brother No problems noted. Sister No problems noted. Sister No problems noted. Social History Housing: House Alcohol intake: former Patient Tobacco Use Status: Former Tobacco user e-Cigarette/Vaping Use: Never Used Current occupational status: employed Cognitive needs: No Hearing needs: No Vision needs: Yes Questionnaire PHQ-9 Over the last 2 weeks, how often have you been bothered by any of the following problems? 1. Little interest or pleasure in doing things: not at all 2. Feeling down, depressed, or hopeless: not at all 3. Trouble falling or staying asleep, or sleeping too much: not at all 4. Feeling tired or having little energy: not at all 5. Poor appetite or overeating: not at all 6. Feeling bad about yourself - or that you are a failure or have let yourself or your family down: not at all 7. Trouble concentrating on things, such as reading the newspaper or watching television: not at all 8. Moving or speaking so slowly that other people could have noticed. Or the opposite - being so fidgety or restless that you have been moving around a lot more than usual: not at all 9. Thoughts that you would be better off or of hurting yourself in some way: not at all Total score: 0 Depression Screening Interpretation: Negative Depression Screening Done: Yes 02241 - PHQ-9 Billing: Yes Source: Developed by Drs. William Merino, Omaira Proctor, Aaron Judd and colleagues, with an educational palomo from [employer]. Thrive Questionnaire Date Thrive assessed: 06/21/24 I am a: Patient What is your living situation today?: I have a steady place to live Within the past 12 months, did the food you bought not last and you didn't have the money to get more?: Never true Within the past 12 months, did you worry whether your food would run out before you got money to buy more?: Never true Do you have trouble paying for medicines?: No Do you have trouble getting transportation to medical appointments?: No Do you have trouble paying your heating and electricity bill?: No Do you have trouble taking care of your child, family member or friend?: No Do you have trouble with day-to-day activities such as bathing, preparing meals, shopping, managing finances, etc.?: No Are you currently unemployed and looking for a job?: No Are you interested in more education?: No Please select the resources that you would like help with: Housing/Prison Currently or been in a relationship where the following occur: No concerns reported THRIVE Score: 0 AUDIT C Alcohol Use Questionnaire (AUDIT-C) 1. How often do you have a drink containing alcohol?: Monthly or less 2. How many drinks containing alcohol do you have on a typical day when you are drinking?: 3 or 4 3. How often do you have six or more drinks on one occasion?: Never Total Score: 2 Score Reviewed/Action Taken: Yes NOELLE-7 AMB Questionnaire NOELLE-7 Date NOELLE - 7 assessed: 06/21/24 Feeling nervous, anxious, or on edge: 0 = Not at all Not being able to stop or control worryin = Not at all Worrying too much about different things: 1 = Several days Trouble relaxin = Not at all Being so restless that it is hard to sit still: 0 = Not at all Becoming easily annoyed or irritable: 0 = Not at all Feeling afraid as if something awful might happen: 0 = Not at all Total NOELLE-7 score (0-4 normal; 5-9 mild; 10-14 moderate; 15-21 severe): 1 Source: Developed by Drs. William Merino, Omaira Proctor, Aaron Judd and colleagues, with an educational palomo from [employer]. NOELLE-7 Assessment Billing NOELLE-7 Assessment Tool: NOELLE-7 Assessment 31916 Review of Systems Const Denies body aches, Denies fatigue, Denies fever(s), Denies headache(s) and Denies weakness Eyes Reports no additional complaints ENT Denies dizziness, Denies headache(s), Denies nasal congestion and Denies sore throat Card Denies chest pain, Denies lightheadedness, Denies palpitations and Denies dyspnea Resp Denies chest congestion, Denies cough and Denies dyspnea GI Denies abdominal pain, Denies change in bowel habits and Denies heartburn Denies urinary frequency, Denies dysuria and Denies urinary urgency Musc Reports no additional complaints Skin/Breast Denies lesions and Denies rash Neuro Denies dizziness, Denies headache(s) and Denies weakness Psych Reports as per HPI Endo Denies fatigue, Denies polydipsia, Denies polyuria and Denies palpitations Dane/Lymph Denies easy bruising Aller/Immun Denies seasonal rhinorrhea Physical exam (Primary Care) Vital Signs: Last Vital Signs Pulse 95 06/21/24 11:47 BP 122/78 06/21/24 11:47 Pulse Ox 97 06/21/24 11:47 BMI result Body Mass Index 28.2 Tobacco/Smoking Status: Tobacco use Status Tobacco use date assessed 02/12/24 06/21/24 11:47 Patient Tobacco Use Status Former Tobacco user 06/21/24 11:47 e-Cigarette/Vaping Use Never Used 06/21/24 11:47 PHQ-9: PHQ-9 Score PHQ-9: Total score 0 06/21/24 12:09 Depression Screening Interpretation: Negative Thrive Assessment: Date of Thrive Assessment Date Thrive assessed 06/21/24 06/21/24 11:49 Currently or been in a relationship where the following occur: No concerns reported Const General: no acute distress and alert Orientation/consciousness: patient oriented x3 HENMT Mouth: Normal oral and palatal mucosa present and moist mucous membranes Eyes General: appearance normal, both eyes and all related structures Neck Neck: Yes full ROM, Yes no lymphadenopathy and Yes supple Resp Effort & Inspection: normal respiratory effort and able to speak in complete sentences Auscultation: clear to auscultation bilaterally Cardio Rate: regular rate Rhythm: regular rhythm Heart sounds: S1 normal heart sound present and S2 normal heart sound present GI Palpation (GI): Soft to palpation, nontender and no masses Auscultation: normal bowel sounds General: Yes no CVA tenderness Back/Spine/Pelvis Back: no CVA tenderness and No back tenderness Skin General skin exam: no rashes or lesions noted Neuro General: patient oriented x3, gait normal, tone normal, moves all extremities, Normal light touch and pain sensation and no focal motor deficits Cranial nerves: Yes CN's II-XII intact bilaterally Cognition (Neuro): normal cognition Extrem General: Yes full ROM, Yes no joint enlargement, Yes no clubbing, cyanosis or edema and Yes no calf tenderness Psych Appearance: grossly normal and well kempt Mental Status: mental status grossly normal Speech and movement: Normal speech and movement present Affect: normal affect Attitude: cooperative Thought process: Normal thought process present Thought content: Normal thought content present Results Reviewed Results Reviewed: Laboratory Tests 06/18/24 08:00 Estimat Average Glucose 128 Hemoglobin A1c % 6.1 H [place]: [place] Age/Sex: 63/F : 1960 Unit#: [id number] Attend Dr: Paloma Benítez MD Re06/18/24 Status: DEP REF Location: [facility] Disch: SPEC : [id number] FRANCIA: 06/18/24 STATUS: COMP REQ : [id number] RECD: 06/18/24-[address]: Paloma Benítez MD COMP: 06/18/24 ENTERED: 06/18/24-[address]: ORDERED: Met Prof Fast, AST, ALT, Lipid Panel, Vitamin D 25-OH Test Result Flag Reference Sodium 136 135-145 mmol/L Potassium 5.0 3.3-5.1 mmol/L CL 98 96-108 mmol/L CO2 25 22-29 mmol/L Gap 18 12-20 BUN 36 H 9-16 mg/dL Creat 1.17 0.5-1.4 mg/dL EGFR 47 NOTE: For -[place] individuals, multiply the result by 1.210. Chronic Kidney Disease: Estimated GFR < 60 mL/min/1.73m2 Severe Kidney Disease: Estimated GFR < 15 mL/min/1.73m2 FBS 106 H 60-99 mg/dL A fasting glucose from 100-125 mg/dl is considered impaired (pre-diabetes). CA 9.4 8.4-10.2 mg/dL AST (GOT) 16 5-31 U/L ALT (GPT) 13 0-31 U/L Triglyceride 103 <150 mg/dL Desirable Triglyceride: less than 150 mg/dL Borderline High Triglyceride 150-199 mg/dL High Triglyceride: 200-499 mg/dL Very High Triglyceride: greater than or equal to 5OO mg/dL Cholesterol 160 <200 mg/dL Desirable Cholesterol: less than 200 mg/dL Borderline High Cholesterol: 200-239 mg/dL High Cholesterol: greater than 239 mg/dL LDL Calculated 79 <100 mg/dL Desirable LDL: less than 100 mg/dL Near Optimal/Above Optimal LDL: 110-129 mg/dL Borderline High LDL: 130-159 mg/dL High LDL: 160-189 mg/dL Very High LDL: greater than or equal to 190 mg/dL HDL 61 >40 mg/dL Desirable HDL: greater than 40 mg/dL Note: This HDL assay may give artificially low results in patients with liver disease. Vit D 25-OH Tot 133.3 >30 ng/mL Health Based Reference Values* < 20 ng/mL Deficient 20-30 ng/mL Insufficient > 30 ng/mL Sufficient Assessment and Plan Assessment & Plan (1) Annual visit for general adult medical examination with abnormal findings: Code(s): Z00.01 - Encounter for general adult medical examination with abnormal findings Plan: Discussed results of recent fasting lab results with patient.. Recommended dental visit every 6 months and regular eye exams, yearly, currently goes to [facility] in [place]. Take adequate calcium in diet and vitamin-D 3 at 2000 IU per cap once a day, in addition to weight-bearing exercises to help maintain good muscle tone and weight control. Instructed to do self-breast exam, and get yearly mammogram, scheduled: Reminded to get her COVID booster, yearly flu shot, up-to-date with her Tdap, recommended to get also shingles vaccination. Patient referred to [facility] for her routine and pelvic exam which is currently overdue (2) Screening for malignant neoplasm of cervix: Code(s): Z12.4 - Encounter for screening for malignant neoplasm of cervix Plan: Obtain referral to [facility] for patient routine Pap and pelvic exam, overdue (3) Essential hypertension: Code(s): I10 - Essential (primary) hypertension Plan: Blood pressure at goal of less than 130/80. Continue lisinopril-HCTZ 20-25 mg 1 tablet taken daily Reinforced importance of following a low sodium diet, getting regular exercise, and lowering stress levels. (4) Type 2 diabetes mellitus without complication, without long-term current use of insulin: Code(s): E11.9 - Type 2 diabetes mellitus without complications Plan: Diabetes stable controlled on current treatment with metformin a 1000 mg 1 tablet twice a day, reminded to get yearly flu shots, get her diabetes retinopathy screening done, goes to [facility] in [place]. She is also up-to-date with her pneumonia vaccine (5) Lebers optic atrophy: Comment: currently being followed by the [facility] in [place] Code(s): H47.22 - Hereditary optic atrophy Plan: Patient reminded to get her yearly diabetes retinopathy screening done last 1 done was in April of 2023 (6) Dyslipidemia: Code(s): E78.5 - Hyperlipidemia, unspecified Plan: Reviewed recent fasting lipid profile with patient with levels within normal limits . Continue atorvastatin 20 mg daily and [place] 3 fatty acid supplements 1 capsule twice a day. , in addition to adherence to low-cholesterol diet and regular exercise, at least 30 minutes 3 to 4 times a week. Advised patient to make healthy food choices, eat more fruits, vegetables, whole grains, wild caught fish and low-fat dairy. Limit amount of meat and fried or fatty food products, as well as processed foods and fast foods. Follow-up scheduled with repeat fasting lipid panel in months. Orders: Orders Aspartate Amino Transferase 09/27/24 E11.9 - Type 2 diabetes mellitus without complications, E78.5 - Hyperlipidemia, unspecified, H47.22 - Hereditary optic atrophy, I10 - Essential (primary) hypertension Basic Metabolic Panel Fasting 09/27/24 E11.9 - Type 2 diabetes mellitus without complications, E78.5 - Hyperlipidemia, unspecified, H47.22 - Hereditary optic atrophy, I10 - Essential (primary) hypertension MM tomosynthesis screening BI 06/21/24 Z12.31 - Encounter for screening mammogram for malignant neoplasm of breast Lipid Panel 09/27/24 E11.9 - Type 2 diabetes mellitus without complications, E78.5 - Hyperlipidemia, unspecified, H47.22 - Hereditary optic atrophy, I10 - Essential (primary) hypertension Hemoglobin A1c 09/27/24 E11.9 - Type 2 diabetes mellitus without complications, E78.5 - Hyperlipidemia, unspecified, H47.22 - Hereditary optic atrophy, I10 - Essential (primary) hypertension Alanine Aminotransferase 09/27/24 E11.9 - Type 2 diabetes mellitus without complications, E78.5 - Hyperlipidemia, unspecified, H47.22 - Hereditary optic atrophy, I10 - Essential (primary) hypertension Vitamin D 25-OH Total 09/27/24 E11.9 - Type 2 diabetes mellitus without complications, E78.5 - Hyperlipidemia, unspecified, H47.22 - Hereditary optic atrophy, I10 - Essential (primary) hypertension Referrals MANAGER CHEMISTRY Referral Z12.4 - Encounter for screening for malignant neoplasm of cervix Coding Level of Care Code Est Pt Prev Care 40-64y(80705) Diagnoses Annual visit for general adult medical examination with abnormal findings Z00.01 Screening for malignant neoplasm of cervix Z12.4 Essential hypertension I10 Type 2 diabetes mellitus without complication, without long-term current use of insulin E11.9 Lebers optic atrophy H47.22 Dyslipidemia E78.5 Additional Codes NOELLE-7 Assessment Billing - NOELLE-7 Assessment Tool: NOELLE-7 Assessment [id number] ([id number])
[2024-06-21 11:47] VITALS: BP 122/78; PULSE 95; O2SAT 97; BMI 28.2
== END 2024-06-21 12:23 | disposition home or self-care (01) ==
PROVIDERS: PCP Internal Medicine; Visit Provider Internal Medicine
DX: Z00.00 Encounter for general adult medical examination without abnormal findings (principal); I10 Essential (primary) hypertension; E11.69 Type 2 diabetes mellitus with other specified complication; H47.22 Hereditary optic atrophy; E78.5 Hyperlipidemia, unspecified
CPT/HCPCS: 99396

== ENCOUNTER 2024-10-02 07:51 | Outpatient (REF) | payer OTHER, SELFPAY ==
[2024-10-02 11:36] LABS: Estimated Average Glucose 137 mg/dL; Hemoglobin A1C 142.2423 umol/L; Hemoglobin A1c % 6.4 % (<6.0); Total Hemoglobin (HGBA1C) 3057.7124 umol/L
[2024-10-02 11:57] LABS: Alanine Aminotransferase 16 U/L (0-31); Anion Gap 16 (12-20); Aspartate Amino Transferase 19 U/L (5-31); Blood Urea Nitrogen 28 mg/dL (9-16); Calcium 9.3 mg/dL (8.4-10.2); Carbon Dioxide 26 mmol/L (22-29); Chloride 101 mmol/L (96-108); Cholesterol 139 mg/dL (<200); Estimated Glomerular Filt Rate 45; Glucose Fasting 119 mg/dL (60-99); HDL Cholesterol 57 mg/dL (>40); LDL Cholesterol Calculated 66 mg/dL (<100); Potassium 4.9 mmol/L (3.3-5.1); Sodium 138 mmol/L (135-145); Triglycerides 82 mg/dL (<150); Vitamin D 25-OH Total 74.1 ng/mL (>30)
== END 2024-10-02 07:52 | disposition home or self-care (01) ==
LOC: HO.HMGCLDS 07:51
PROVIDERS: PCP Internal Medicine; Visit Provider Internal Medicine
DX: E78.5 Hyperlipidemia, unspecified (principal); I10 Essential (primary) hypertension; E11.9 Type 2 diabetes mellitus without complications; H47.22 Hereditary optic atrophy
CPT/HCPCS: 36415; 80048; 80061; 82306; 83036; 84450; 84460

== ENCOUNTER 2024-10-04 11:16 | Outpatient (AMB) | payer OTHER, SELFPAY ==
--- NOTE | 2024-10-04 11:47 | A.OFFPC_ITS ---
Vital Signs 10/04/24 11:48 Height 5 ft 1 in Weight 150 lb BMI 28.3 BP 132/70 Blood Pressure Location Lt brachial Position Sitting Pulse 103 H Pulse Source Pulse Oximeter Pulse Oximetry (%) 95 Oxygen Delivery Method Room Air Intake Visit Reasons: ffup dm ,lipids .htn after labs done Intake Note: Pt is here today for her f/u DM,lipids and HTN Allergies No Known Allergies Allergy (Verified 10/04/24 12:12) Medication List - Last Reconciled 10/04/24 by Paloma Benítez MD albuterol sulfate 90 mcg/actuation 2 puffs inhalation Q6H PRN aspirin (Adult Aspirin Regimen) 81 mg PO DAILY atorvastatin 20 mg PO DAILY buspirone 5 mg PO BID cholecalciferol (vitamin D3) 25 mcg PO DAILY docusate sodium (Stool Softener) 100 mg PO DAILY lisinopril-hydrochlorothiazide 20-25 mg 1 tab PO DAILY loratadine (Claritin) 10 mg PO DAILY PRN metformin 1,000 mg PO BID multivitamin 1 tab PO DAILY netarsudil-latanoprost 0.02-0.005 % (Rocklatan) 1 drp ophthalmic (eye) QPM omega-3 fatty acids (Fish Oil Concentrate) 1,000 mg PO DAILY propylene glycol 0.6% (Systane Complete) 1 drp ophthalmic (eye) DAILY PRN Tobacco use date assessed: 10/04/24 Dental Screening Dental Screen Date: 10/04/24 Did you have a dental visit in the last 12 months?: Yes Did you have a dental problem in the last 6 months where you did not have access to dental care?: No Was dental information given to patient?: Patient has dentist HPI ffup dm ,lipids .htn after labs done HPI Details [age] year-old lady with past medical hist ory significant for diabetes mellitus currently on metformin 1000 mg 1 tablet twice a day, and takes atorvastatin for her hyperlipidemia. Currently on lisinopril-HCTZ for her hypertension with blood pressure stable and controlled on present treatment. Has been compliant with taking her medications, but not so much with diet, and no regular exercise done. [facility] Medical History Decreased hearing of both ears Dyslipidemia Generalized anxiety disorder Lebers optic atrophy Type 2 diabetes mellitus without complication, without long-term current use of insulin Hyperlipidemia Essential hypertension Surgical History [place] teeth extracted Family History Father Brain cancer Lung cancer Mental health disorder Mother HTN (hypertension) Diabetes mellitus Breast cancer Sister HTN (hypertension) Skin cancer Paternal Grandfather Stomach cancer Maternal Aunt Multiple sclerosis Brother No problems noted. Sister No problems noted. Sister No problems noted. Social History Housing: House Alcohol intake: former Patient Tobacco Use Status: Former Tobacco user e-Cigarette/Vaping Use: Never Used Current occupational status: employed Cognitive needs: No Hearing needs: No Vision needs: Yes Questionnaire PHQ-9 Over the last 2 weeks, how often have you been bothered by any of the following problems? Depression Screening Interpretation: Negative Depression Screening Done: Yes Source: Developed by Drs. William Merino, Omaira Proctor, Aaron Judd and colleagues, with an educational palomo from [employer]. Thrive Questionnaire Date Thrive assessed: 10/04/24 I am a: Patient What is your living situation today?: I have a steady place to live Within the past 12 months, did the food you bought not last and you didn't have the money to get more?: Never true Within the past 12 months, did you worry whether your food would run out before you got money to buy more?: Never true Do you have trouble paying for medicines?: No Do you have trouble getting transportation to medical appointments?: No Do you have trouble paying your heating and electricity bill?: No Do you have trouble taking care of your child, family member or friend?: No Do you have trouble with day-to-day activities such as bathing, preparing meals, shopping, managing finances, etc.?: No Are you currently unemployed and looking for a job?: No Are you interested in more education?: No Please select the resources that you would like help with: None Currently or been in a relationship where the following occur: No concerns reported THRIVE Score: 0 NOELLE-7 AMB Questionnaire NOELLE-7 Date NOELLE - 7 assessed: 06/21/24 Source: Developed by Drs. William Merino, Omaira Proctor, Aaron Judd and colleagues, with an educational palomo from [employer]. Review of Systems Const Denies body aches, Denies fatigue, Denies fever(s), Denies headache(s) and Denies weakness Eyes Reports no additional complaints ENT Denies dizziness, Denies headache(s), Denies nasal congestion and Denies sore throat Card Denies chest pain, Denies lightheadedness, Denies palpitations and Denies dyspnea Resp Denies chest congestion, Denies cough and Denies dyspnea GI Denies abdominal pain, Denies change in bowel habits and Denies heartburn Denies urinary frequency, Denies dysuria, Reports urinary incontinence and Denies urinary urgency Musc Reports no additional complaints Skin/Breast Denies lesions and Denies rash Neuro Denies dizziness, Denies headache(s) and Denies weakness Psych Reports as per HPI Endo Denies fatigue, Denies polydipsia, Denies polyuria and Denies palpitations Dane/Lymph Denies easy bruising Aller/Immun Denies seasonal rhinorrhea Physical exam (Primary Care) Vital Signs: Last Vital Signs Pulse 103 H 10/04/24 11:48 BP 132/70 10/04/24 11:48 Pulse Ox 95 10/04/24 11:48 Oxygen Delivery Method Room Air 10/04/24 11:48 BMI result Body Mass Index 28.3 Tobacco/Smoking Status: Tobacco use Status Tobacco use date assessed 10/04/24 10/04/24 11:50 Patient Tobacco Use Status Former Tobacco user 10/04/24 11:47 e-Cigarette/Vaping Use Never Used 10/04/24 11:47 Depression Screening Interpretation: Negative Thrive Assessment: Date of Thrive Assessment Date Thrive assessed 10/04/24 10/04/24 11:55 Currently or been in a relationship where the following occur: No concerns reported Const General: no acute distress and alert Orientation/consciousness: patient oriented x3 HENMT Mouth: Normal oral and palatal mucosa present and moist mucous membranes Eyes General: appearance normal, both eyes and all related structures Neck Neck: Yes full ROM, Yes no lymphadenopathy and Yes supple Resp Effort & Inspection: normal respiratory effort and able to speak in complete sentences Auscultation: clear to auscultation bilaterally Cardio Rate: regular rate Rhythm: regular rhythm Heart sounds: S1 normal heart sound present and S2 normal heart sound present GI Palpation (GI): Soft to palpation, nontender and no masses Auscultation: normal bowel sounds Back/Spine/Pelvis Back: No back tenderness Skin General skin exam: no rashes or lesions noted Neuro General: patient oriented x3, gait normal, tone normal, moves all extremities, Normal light touch and pain sensation and no focal motor deficits Cranial nerves: Yes CN's II-XII intact bilaterally Cognition (Neuro): normal cognition Extrem General: Yes full ROM, Yes no joint enlargement, Yes no clubbing, cyanosis or edema and Yes no calf tenderness Psych Appearance: grossly normal and well kempt Mental Status: mental status grossly normal Speech and movement: Normal speech and movement present Affect: normal affect Attitude: cooperative Thought process: Normal thought process present Thought content: Normal thought content present Results Reviewed Results Reviewed: Name: Aan Johns Age/Sex: 64/F : 1960 Unit#: [id number] Attend Dr: Paloma Benítez MD Re10/02/24 Status: DEP [facility] Disch: SPEC : [id number] FRANCIA: 10/02/24 STATUS: COMP REQ : [id number] RECD: 10/02/[address]: Paloma Benítez MD COMP: 10/02/24 ENTERED: 10/02/24-[address] [facility] [address]: ORDERED: Met Prof Fast, AST, ALT, Lipid Panel, Vitamin D 25-OH Test Result Flag Reference Sodium 138 135-145 mmol/L Potassium 4.9 3.3-5.1 mmol/L CL 101 96-108 mmol/L CO2 26 22-29 mmol/L Gap 16 12-20 BUN 28 H 9-16 mg/dL Creat 1.20 0.5-1.4 mg/dL EGFR 45 NOTE: For -[place] individuals, multiply the result by 1.210. Chronic Kidney Disease: Estimated GFR < 60 mL/min/1.73m2 Severe Kidney Disease: Estimated GFR < 15 m L/min/1.73m2 FBS 119 H 60-99 mg/dL A fasting glucose from 100-125 mg/dl is considered impaired (pre-diabetes). CA 9.3 8.4-10.2 mg/dL AST (GOT) 19 5-31 U/L ALT (GPT) 16 0-31 U/L Triglyceride 82 <150 mg/dL Desirable Triglyceride: less than 150 mg/dL Borderline High Triglyceride 150-199 mg/dL High Triglyceride: 200-499 mg/dL Very High Triglyceride: greater than or equal to 5OO mg/dL Cholesterol 139 <200 mg/dL Desirable Cholesterol: less than 200 mg/dL Borderline High Cholesterol: 200-239 mg/dL High Cholesterol: greater than 239 mg/dL LDL Calculated 66 <100 mg/dL Desirable LDL: less than 100 mg/dL Near Optimal/Above Optimal LDL: 110-129 mg/dL Borderline High LDL: 130-159 mg/dL High LDL: 160-189 mg/dL Very High LDL: greater than or equal to 190 mg/dL HDL 57 >40 mg/dL Desirable HDL: greater than 40 mg/dL Note: This HDL assay may give artificially low results in patients with liver disease. Vit D 25-OH Tot 74.1 >30 ng/mL Health Based Reference Values* < 20 ng/mL Deficient 20-30 ng/mL Insufficient > 30 ng/mL Sufficient Laboratory Tests 10/02/24 08:00 Estimat Average Glucose 137 Hemoglobin A1c % 6.4 H Coding Level of Care Code Est Pt Level 4 (75640) Complex EM visit Add On G2211 Diagnoses Type 2 diabetes mellitus without complication, without long-term current use of insulin E11.9 Essential hypertension I10 Dyslipidemia E78.5 Generalized anxiety disorder F41.1 Stage 3 chronic kidney disease N18.30 Assessment & Plan Assessment & Plan (1) Type 2 diabetes mellitus without complication, without long-term current use of insulin: Code(s): E11.9 - Type 2 diabetes mellitus without complications Category: Medical Plan: Diabetes mellitus controlled with present treatment, will continue on metformin a 1000 mg 1 tablet twice a day. Has appointment with eye and LASIK surgery in [place] for diabetes retinopathy screening, sees Dr. Holly on 10/06/2024. Reminded to do regular weight-bearing exercise, and adherence to re commended diet. (2) Essential hypertension: Code(s): I10 - Essential (primary) hypertension Category: Medical Plan: Blood pressure at goal of less than 130/80. Continue with current medication. Reinforced importance of following a low sodium diet, getting regular exercise, and lowering stress levels. (3) Dyslipidemia: Code(s): E78.5 - Hyperlipidemia, unspecified Category: Medical Plan: Fasting lipids have been stable and controlled on present treatment, continue atorvastatin 20 mg daily (4) Generalized anxiety disorder: Code(s): F41.1 - Generalized anxiety disorder Category: Medical Plan: Continue buspirone 5 mg 1 tablet twice a day (5) Stage 3 chronic kidney disease: Code(s): N18.30 - Chronic kidney disease, stage 3 unspecified Plan: Decreasing renal function observed, referred to nephrology for further evaluation Orders: Orders Alanine Aminotransferase 01/22/25 E11.9 - Type 2 diabetes mellitus without complications, E78.5 - Hyperlipidemia, unspecified, F41.1 - Generalized anxiety disorder, I10 - Essential (primary) hypertension Lipid Panel 01/22/25 E11.9 - Type 2 diabetes mellitus without complications, E78.5 - Hyperlipidemia, unspecified, F41.1 - Generalized anxiety disorder, I10 - Essential (primary) hypertension Vitamin D 25-OH Total 01/22/25 E11.9 - Type 2 diabetes mellitus without complications, E78.5 - Hyperlipidemia, unspecified, F41.1 - Generalized anxiety disorder, I10 - Essential (primary) hypertension Hemoglobin A1c 01/22/25 E11.9 - Type 2 diabetes mellitus without complications, E78.5 - Hyperlipidemia, unspecified, F41.1 - Generalized anxiety disorder, I10 - Essential (primary) hypertension Aspartate Amino Transferase 01/22/25 E11.9 - Type 2 diabetes mellitus without complications, E78.5 - Hyperlipidemia, unspecified, F41.1 - Generalized anxiety disorder, I10 - Essential (primary) hypertension Basic Metabolic Panel Fasting 01/22/25 E11.9 - Type 2 diabetes mellitus without complications, E78.5 - Hyperlipidemia, unspecified, F41.1 - Generalized anxiety disorder, I10 - Essential (primary) hypertension Microalbumin, Random (w Creat) 01/22/25 E11.9 - Type 2 diabetes mellitus without complications, E78.5 - Hyperlipidemia, unspecified, F41.1 - Generalized anxiety disorder, I10 - Essential (primary) hypertension Referrals Nephrology Referral E11.9 - Type 2 diabetes mellitus without complications, I10 - Essential (primary) hypertension, N18.30 - Chronic kidney disease, stage 3 unspecified
[2024-10-04 11:48] VITALS: BP 132/70; PULSE 103; O2SAT 95; BMI 28.3
== END 2024-10-04 12:27 | disposition home or self-care (01) ==
PROVIDERS: PCP Internal Medicine; Visit Provider Internal Medicine
DX: I12.9 Hypertensive chronic kidney disease with stage 1 through stage 4 chronic kidney disease, or unspecified chronic kidney disease (principal); E11.9 Type 2 diabetes mellitus without complications; N18.30 Chronic kidney disease, stage 3 unspecified; E78.5 Hyperlipidemia, unspecified; F41.1 Generalized anxiety disorder

== ENCOUNTER → 2024-10-04 11:16 | Outpatient (BNVA) | payer OTHER, SELFPAY | PROVIDERS: PCP Internal Medicine; Visit Provider Internal Medicine | DX: I12.9 Hypertensive chronic kidney disease with stage 1 through stage 4 chronic kidney disease, or unspecified chronic kidney disease (principal); E11.22 Type 2 diabetes mellitus with diabetic chronic kidney disease; N18.30 Chronic kidney disease, stage 3 unspecified; F41.1 Generalized anxiety disorder; E78.5 Hyperlipidemia, unspecified | CPT/HCPCS: 99212 ==

== ENCOUNTER 2025-01-01 11:48 | Outpatient (REF) | payer OTHER, SELFPAY ==
--- OUTSIDE RECORDS SUMMARY | 2025-01-01 11:50 | XMS_ITS | Encounter Summary ---
Author Organization [facility] Address [address] [place] [phone] Phone Care Team Providers Care Office Nurse Practitioner Name Role Phone Maikol Benítez MD Primary Care Provider [phone] Reason for Referral * Cardiac Services (Routine) - Pending Review Specialty Diagnoses / Procedures Referred By Contac t Referred To Contact Diagnoses Stage 3 chronic kidney disease, not otherwise specified (HCC) Procedures Ultrasound renal limited Rajendra Cortez MD [address] [phone] Phone: tel: fax: Referral ID Status Reason Start Date Expiration Date V isits Requested Visits Authorized [id number] Pending Review 12/20/2024 12/20/2025 1 1 Reason for Visit * Reason Comments Chronic Kidney Disease Encounter Details Date Type Department Care Team (Late st Contact Info) Description 12/20/2024 2:45 PM EST Office Visit [facility] [address] [phone] Rajendra Cortez MD [address] [phone] Stage 3 chronic kidney disease, not otherwise specified (HCC) (Primary Dx); Diabetes mellitus, not otherwise specified (HCC); Hypertension Social History Tobacco Use Types Packs/Day Years Used Date Smoking Tobacco: Never Assessed Comments Unknown Sex and Gender Information Value Date Recorded Sex Assigned at Not on file Legal Sex Female 3:20 PM EST Gender Identity Not on file Sexual Orientation Not on file documented as of this encounter Last Filed Vital Signs Vital Sign Reading Time Taken Comments Blood Pressure 110/52 12/20/2024 3:17 PM EST Pulse 86 12/20/2024 3:17 PM EST Temperature - - Respiratory Rate - - Oxygen Saturation - - Inhaled Oxygen Concentration - - Weight 65.8 kg (145 lb) 12/20/2024 3:17 PM EST Height - - Body Mass Index - - documented in this encounter Progress Notes * Rajendra Cortez MD - 12/20/2024 2:45 PM EST [facility] Patient Name: Ana Johns, Anup Date of : 1960, 64 y.o. Date: 12/20/2024 Referring MD: No primary care provider on file. PCP: Maikol Benítez MD Than k ayo for allowing me to participate in the care of your patient Chief Complaint: Chief Complaint Patient presents with Chronic Kidney Disease Reason For Visit: I had the pleasure of seeing your patient for evaluation of abnormal serum creatinine. There is a history of diabetes mellitus and hypertension for many years. There is no recent upper respiratory infection or skin rash. There is no change in the color or appearance of the urine. She denies the use of NSAID on a regular basis. There is no family history of kidney disease, no prior history of acute kidney injury or kidney stones. The following portions of the patient's chart were reviewed in this encounter and updated as appropriate: Allergies Meds Problems Med Hx Surg Hx Fam Hx Constitutional: Negative for chills, fever, malaise/fatigue and weight loss. HENT: Negative for ear pain, hearing loss and tinnitus. Eyes: Negative for blurred vision, double vision, photophobia and pain. Respiratory: Negative for cough, hemoptysis, sputum production, shortness of breath and wheezing. Cardiovascular: Negative for chest pain, palpitations, orthopnea, claudication and leg swelling. Gastrointestinal: Negative for abdominal pain, diarrhea, nausea and vomiting. Genitourinary: Negative for dysuria, flank pain, frequency, hematuria and urgency. Musculoskeletal: Negative for myalgias. Skin: Negative for itching and rash. Neurological: Negative for dizziness, tingling and headaches. Psychiatric/Behavioral: Negative for depression. Full 13 point review of systems unremarkable except as noted above. History reviewed. No pertinent past medical history. History reviewed. No pertinent surgical history. Social History Tobacco Use Smoking status: Not on file Smokeless tobacco: Not on file Substance Use Topics Alcohol use: Not on file History reviewed. No pertinent family history. Current Outpatient Medications Medication Sig Dispense Refill atorvastatin (LIPITOR) 20 MG tablet Take 20 mg by mouth 1 (one) time each day busPIRone (BUSPAR) 5 MG tablet Take 5 mg by mouth in the morning and 5 mg in the evening. carboxymethylcellulose (REFRESH PLUS) 0.5 % solution 1 drop 3 (three) times a day if needed for dryeyes docusate sodium (COLACE) 100 MG capsule Take 100 mg by mouth in the morning and 100 mg in the evening. lisinopril-hydroCHLOROthiazide (PRINZIDE,ZESTORETIC) 20-25 MG per tablet Take 1 tablet by mouth 1 (one) time each day metFORMIN (GLUCOPHAGE) 1000 MG tablet Take 1,000 mg by mouth in the morning and 1,000 mg in the evening. Elizabeth-3 Fatty Acids (Fish Oil) 1200 MG capsule delayed-release Take by mouth Rocklatan 0.02-0.005 % solution INSTILL 1 DROP IN BOTH EYES EVERY NIGHT No current facility-administered medications for this visit. No Known Allergies Objective: Vitals: 12/20/24 1517 BP: 110/52 Pulse: 86 Weight: 145 lb (65.8 kg) Physical Exam Constitutional: Oriented to person, place, and time. HEENT: Mouth/Throat: Oropharynx is clear and moist. Eyes: Pupils are equal, round, and reactive to light. Neck: No JVD present. Cardiovascular: Regular rhythm. Pulmonary/Chest: Breath sounds normal. Abdominal: Soft. There is no abdominal tenderness. Musculoskeletal: Normal range of motion. Neurological: Alert and oriented to person, place, and time. Skin: Skin is warm. Psychiatric: Normal mood and affect. No results found for: EGFRAFR No results found for: EGFRNAFR Chemistry Lab Units 10/02/24 0000 CREATININE mg/dL 1.20 BUN mg/dL 28 POTASSIUM mEq/L 4.9 SODIUM mEq/L 136 CO2 mmol/L 26 CHLORIDE 101 Bone Mineral Lab Units 10/02/24 0000 CALCIUM mg/dL 9.3 No lab exists for component: SPECGRAV , GLUCOSEUR , BILIRUBINUR , RBCUR , UPROTEIN , LEUKOCYTESUR , NITRITE PLAN: Assessment & Plan 1. Stage 3 chronic kidney disease, not otherwise specified (HCC) 2. Diabetes mellitus, not otherwise specified (HCC) 3. Hypertension I suspect she has chronic kidney disease based on eGFR and the presence of proteinuria. Differential diagnosis includes: -diabetic and hypertensive kidney disease -nephron loss due to aging -residual kidney function loss due to prior TOD I will assess urine sediment and quantify proteinuria. We discussed the importance of glycemic control and blood pressure control. Blood pressure is on target. She is on ACEi . He is a candidate for SGTL2i. PLAN RAASi Renal US SPEP Follow kidney function and electrolytes UPCR UA Low sodium diet Avoid NSAID Orders Placed This Encounter Renal funtion panel urine albumin / creatinine ratio Urinalysis with microscopic exam OUTSIDE OFFICE Protein electrophoresis, serum Ultrasound renal limited Return in 1 month (on 01/20/2025). Rajendra Cortez MD documented in this encounter Plan of Treatment Upcoming Encounters Date Type Department Care Team (Late st Contact Info) Description 02/07/2025 10:45 AM EDT Office Visit [facility] [address] [phone] Rajendra Cortez MD [address] [phone] Scheduled Orders Name Type Priority Associated Diagnoses Order Schedule Renal funtion panel Lab Routine Stage 3 chronic kidney disease, not otherwise specified (HCC) Expected: 12/20/2024, Expires: 01/20/2026 urine albumin / creatinine ratio Lab Routine Stage 3 chronic kidney disease, not otherwise specified (HCC) Expected: 12/20/2024, Expires: 01/20/2026 Urinalysis with microscopic exam OUTSIDE OFFICE Lab Routine Stage 3 chronic kidney disease, not otherwise specified (HCC) Expected: 12/20/2024, Expires: 01/20/2026 Ultrasound renal limited Vascular Ultrasound Routine Stage 3 chronic kidney disease, not otherwise specified (HCC) Expected: 12/20/2024, Expires: 12/20/2026 Protein electrophoresis, serum Lab Routine Stage 3 chronic kidney disease, not otherwise specified (HCC) Expected: 12/20/2024, Expires: 01/20/2026 documented as of this encounter Procedures Procedure Name Priority Date/Time Associated Diagnosis Comments RENAL FUNCTION PANEL (EXTERNAL LAB ENTRY) Routine 10/02/2024 documented in this encounter Results * Renal Function Panel (External Lab) (10/02/2024) BUN 28 mg/dL eGFR 45 Sodium 136 mEq/L Potassium 4.9 mEq/L Chloride 101 Carbon Dioxide 26 mmol/L Calcium 9.3 mg/dL Creatinine 1.20 mg/dL Anion Gap 16 Blood 10/02/2024 us Historical Provider LAB BLOOD ORDERABLES Ewa l Result documented in this encounter Visit Diagnoses Diagnosis Stage 3 chronic kidney disease, not otherwise specified (HCC)- Primary Diabetes mellitus, not otherwise specified (HCC) Hypertension documented in this encounter Care Teams Office Nurse Practitioner Relationship Specialty Start Date End Date Maikol Benítez MD [facility] [place] [address] PCP - General Internal Medicine 10/13/24 documented as of this encounter
[2025-01-04 13:23] LABS: Prot Elec - Albumin 4.1 g/dL (3.8-4.8); Prot Elec - Alpha1 0.3 g/dL (0.2-0.3); Prot Elec - Alpha2 0.8 g/dL (0.5-0.9); Prot Elec - Beta 1 0.5 g/dL (0.4-0.6); Prot Elec - Beta 2 0.4 g/dL (0.2-0.5); Prot Elec - Gamma 0.7 g/dL (0.8-1.7); Prot Elec - Total Protein 6.8 g/dL (6.1-8.1)
== END 2025-01-01 11:49 | disposition home or self-care (01) ==
LOC: HO.HMGCLDS 11:48
PROVIDERS: PCP Internal Medicine; Visit Provider Internal Medicine Nephrology
DX: N18.30 Chronic kidney disease, stage 3 unspecified (principal)
CPT/HCPCS: 36415; 84165

== ENCOUNTER 2025-01-31 06:06 | Outpatient (REF) | payer OTHER, SELFPAY ==
--- OUTSIDE RECORDS SUMMARY | 2025-01-31 06:08 | XMS_ITS | Clinical Summary ---
Author Organization [facility] Address [address] [place] [phone] Phone Care Team Providers Care Horticultural Specialty Grower Field Name Role Phone Maikol Benítez MD Primary Care Provider [phone]- [phone] Allergies No known active allergies Medications atorvastatin (LIPITOR) 20 MG tablet Take 20 mg by mouth 1 (one) time each day 09/29/2024 Active busPIRone (BUSPAR) 5 MG tablet Take 5 mg by mouth in the morning and 5 mg in the evening. 11/12/2024 Active lisinopril-hydr oCHLOROthiazide (PRINZIDE,ZESTO RETIC) 20-25 MG per tablet Take 1 tablet by mouth 1 (one) time each day 09/29/2024 Active Rocklatan 0.02-0.005 % solution INSTILL 1 DROP IN BOTH EYES EVERY NIGHT 10/14/2024 Active metFORMIN (GLUCOPHAGE) 1000 MG tablet Take 1,000 mg by mouth in the morning and 1,000 mg in the evening. 09/30/2024 Active docusate sodium (COLACE) 100 MG capsule Take 100 mg by mouth in the morning and 100 mg in the evening. 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 [address] [phone] Rajendra Cortez MD Stage 3 chronic kidney disease, not otherwise specified (HCC) (Primary Dx); Diabetes mellitus, not otherwise specified (HCC); Hypertension from Last 3 Months Social History Tobacco Use Types Packs/Day Years Used Date Smoking Tobacco: Never Assessed Comments Unknown Sex and Gender Information Value Date Recorded Sex Assigned at Not on file Legal Sex Female 3:20 PM EST Gender Identity Not on file Sexual Orientation Not on file Last Filed Vital Signs Vital Sign Reading Time Taken Comments Blood Pressure 110/52 12/20/2024 3:17 PM EST Pulse 86 12/20/2024 3:17 PM EST Temperature - - Respiratory Rate - - Oxygen Saturation - - Inhaled Oxygen Concentration - - Weight 65.8 kg (145 lb) 12/20/2024 3:17 PM EST Height - - Body Mass Index - - Plan of Treatment Upcoming Encounters Date Type Department Care Team (Late st Contact Info) Description 02/21/2025 4:30 PM EDT Office Visit [facility] [address] [phone] Rajendra Cortez MD [address] [phone] Health Maintenance Due Date Last Done Comments Breast Cancer Screening 1960 Pneumococcal Vaccine: Pediat rics (0 to 5 Years) and At-Risk Patients (6 to 64 Years) (1 of 2 - PCV) 1966 Colorectal Cancer Screening: Annual FOBT 2010 Colorectal Cancer Screening: Colonoscopy 2010 Colorectal Cancer Screening: Sigmoidoscopy 2010 Influenza Vaccine (#1) 2024 Diabetes: Hemoglobin A1C 12/17/2024 Diabetes: Ophthalmology Exam 12/17/2024 Diabetes: Pedal Pulse Checked 12/17/2024 Diabetes: Sensory Foot Exam 12/17/2024 Diabetes: Visual Foot Exam 12/17/2024 Hepatitis B Vaccine Aged Out No longe r eligible based on patient's age to complete this topic Procedures Procedure Name Priority Date/Time Associated Diagnosis Comments PROTEIN ELECTROPHORESIS, SERUM Routine 01/01/2025 1:35 PM EST Stage 3 chronic kidney disease, not otherwise specified (HCC) from Last 3 Months Results * (ABNORMAL) Protein electrophoresis, serum (01/01/2025 1:35 PM EST) Total Protein Electrophoresis 6.8 6.1 - 8.1 g/dL See order comments Albumin 4.1 3.8 - 4.8 g/dL See order comments A-1 Antitrypsin 0.3 0.2 - 0.3 g/dL See order comments Alpha 2 0.8 0.5 - 0.9 g/dL See order comments Beta-1 0.5 0.4 - 0.6 g/dL See order comments Beta-2 0.4 0.2 - 0.5 g/dL See order comments Gamma Globulin % 0.7(A) 0.8 - 1.7 g/dL See order comments Abnormal Protein Band 1 TNP See order comments Abnormal Protein Band 2 TNP See order comments Abnormal Protein Band 3 TNP See order comments Protein Electrophoresis Interpretation, Serum SEE NOTE See order comments Comment: Consistent with hypogammaglobulinemia. Serum free light chains or urine immunofixation should be considered if plasma cell dyscrasias are a possible clinical diagnosis. THIS TEST WAS PERFORMED AT: [facility] [address] [place] [address] ??[phone] FRANCESCA MUNOZ MD Blood (Blood, Venous) 01/01/2025 1:35 PM EST 01/01/2025 1:35 PM EST us Rajendra Cortez MD LAB BLOOD ORDERABLES Final Resul t YANIRA See order comments [place] [address] from Last 3 Months Insurance [employer] [id number] Care Teams Horticultural Specialty Grower Field Relationship Specialty Start Date End Date Maikol Benítez MD [address] [place] [address] [place] [address] PCP - General Internal Medicine 10/13/24
[2025-01-31 10:50] LABS: Estimated Average Glucose 131 mg/dL; Hemoglobin A1c % 6.2 % (<6.0); Total Hemoglobin (HGBA1C) 2995.2296 umol/L
[2025-01-31 11:02] LABS: Alanine Aminotransferase 16 U/L (0-31); Anion Gap 14 (12-20); Aspartate Amino Transferase 19 U/L (5-31); Blood Urea Nitrogen 23 mg/dL (9-16); Carbon Dioxide 28 mmol/L (22-29); Chloride 98 mmol/L (96-108); Cholesterol 148 mg/dL (<200); Estimated Glomerular Filt Rate 50; Glucose Fasting 115 mg/dL (60-99); HDL Cholesterol 52 mg/dL (>40); LDL Cholesterol Calculated 78 mg/dL (<100); Potassium 3.8 mmol/L (3.3-5.1); Sodium 136 mmol/L (135-145); Triglycerides 94 mg/dL (<150)
[2025-01-31 11:20] LABS: Vitamin D 25-OH Total 116.7 ng/mL (>30)
[2025-01-31 12:36] LABS: Creatinine Urine 71.36 mg/dL; Microalbum/Creatinine Ratio Ur 9.8 ug/mg cr (<30)
== END 2025-01-31 06:07 | disposition home or self-care (01) ==
LOC: HO.HMGCLDS 06:06
PROVIDERS: PCP Internal Medicine; Visit Provider Internal Medicine
DX: E11.9 Type 2 diabetes mellitus without complications (principal); I10 Essential (primary) hypertension; E78.5 Hyperlipidemia, unspecified; F41.1 Generalized anxiety disorder
CPT/HCPCS: 36415; 80048; 80061; 82043; 82306; 82570; 83036; 84450; 84460

== ENCOUNTER 2025-02-02 09:16 | Outpatient (AMB) | payer OTHER, SELFPAY ==
--- NOTE | 2025-02-02 09:20 | A.OFFPC_ITS ---
Vital Signs 02/02/25 09:22 Height 5 ft 1 in Weight 139 lb BMI 26.3 BP 126/70 Blood Pressure Location Lt brachial Position Sitting Respiration 17 Pulse 98 Temp 98.1 F Temp Source Oral Pulse Oximetry (%) 99 Oxygen Delivery Method Room Air Intake Visit Reasons: 4 months follow up Intake Note: Pt is here today for her 4mo. f/u Allergies No Known Allergies Allergy (Verified 02/02/25 10:15) Medication List - Last Reconciled 02/02/25 by Paloma Benítez MD albuterol sulfate 90 mcg/actuation 2 puffs inhalation Q6H PRN aspirin (Adult Aspirin Regimen) 81 mg PO DAILY atorvastatin 20 mg PO DAILY buspirone 5 mg PO BID cholecalciferol (vitamin D3) 25 mcg PO DAILY docusate sodium (Stool Softener) 100 mg PO DAILY lisinopril-hydrochlorothiazide 20-25 mg 1 tab PO DAILY loratadine (Claritin) 10 mg PO DAILY PRN metformin 1,000 mg PO BID multivitamin 1 tab PO DAILY netarsudil-latanoprost 0.02-0.005 % (Rocklatan) 1 drp ophthalmic (eye) QPM omega-3 fatty acids (Fish Oil Concentrate) 1,000 mg PO DAILY propylene glycol 0.6% (Systane Complete) 1 drp ophthalmic (eye) DAILY PRN Tobacco use date assessed: 02/02/25 Dental Screening Dental Screen Date: 02/02/25 Did you have a dental visit in the last 12 months?: Yes Did you have a dental problem in the last 6 months where you did not have access to dental care?: No Was dental information given to patient?: Patient has dentist HPI 4 months follow up HPI Details The patient is a 64-year-old female here for follow-up on her diabetes mellitus, and dyslipidemia. - Complains of nausea and vomiting fol lowing the consumption of [employer] burger and tater tots 5 days ago.. patient states that she threw up at work the next day, and again after she ate the another burger the following day. She has been eating a bland diet since then and states that vomiting has stopped but still having intermittent episodes of nausea. - [facility] normal liver function , lipids, and Hemoglobin A1c, but still with elevated vitamin D levels despite cessation of direct vitamin D supplementation. patient however is taking a multivitamin she goees to [facility] for her routine eye exam, requested copy of latest diabetes retinopathy screening [facility] Medical History Decreased hearing of both ears Dyslipidemia Generalized anxiety disorder Lebers optic atrophy Type 2 diabetes mellitus without complication, without long-term current use of insulin Hyperlipidemia Essential hypertension Surgical History Selma teeth extracted Family History Father Brain cancer Lung cancer Mental health disorder Mother HTN (hypertension) Diabetes mellitus Breast cancer Sister HTN (hypertension) Skin cancer Paternal Grandfather Stomach cancer Maternal Aunt Multiple sclerosis Brother No problems noted. Sister No problems noted. Sister No problems noted. Social History Housing: House Alcohol intake: former Patient Tobacco Use Status: Former Tobacco user e-Cigarette/Vaping Use: Never Used Current occupational status: employed Cognitive needs: No Hearing needs: No Vision needs: Yes Questionnaire PHQ-9 Over the last 2 weeks, how often have you been bothered by any of the following problems? 1. Little interest or pleasure in doing things: not at all 2. Feeling down, depressed, or hopeless: not at all 3. Trouble falling or staying asleep, or sleeping too much: not at all 4. Feeling tired or having little energy: not at all 5. Poor appetite or overeating: not at all 6. Feeling bad about yourself - or that you are a failure or have let yourself or your family down: not at all 7. Trouble concentrating on things, such as reading the newspaper or watching television: not at all 8. Moving or speaking so slowly that other people could have noticed. Or the opposite - being so fidgety or restless that you have been moving around a lot more than usual: not at all 9. Thoughts that you would be better off or of hurting yourself in some way: not at all Total score: 0 Depression Screening Interpretation: Negative Depression Screening Done: Yes [address] - PHQ-9 Billing: Yes Source: Developed by Drs. William Merino, Omaira Proctor, Aaron Judd and colleagues, with an educational palomo from [employer]. Thrive Questionnaire Date Thrive assessed: 02/02/25 I am a: Patient What is your living situation today?: I have a steady place to live Within the past 12 months, did the food you bought not last and you didn't have the money to get more?: Never true Within the past 12 months, did you worry whether your food would run out before you got money to buy more?: Never true Do you have trouble paying for medicines?: No Do you have trouble getting transportation to medical appointments?: No Do you have trouble paying your heating and electricity bill?: No Do you have trouble taking care of your child, family member or friend?: No Do you have trouble with day-to-day activities such as bathing, preparing meals, shopping, managing finances, etc.?: No Are you currently unemployed and looking for a job?: No Are you interested in more education?: No Currently or been in a relationship where the following occur: No concerns reported THRIVE Score: 0 AUDIT C Alcohol Use Questionnaire (AUDIT-C) 1. How often do you have a drink containing alcohol?: Never Total Score: 0 NOELLE-7 AMB Questionnaire NOELLE-7 Date NOELLE - 7 assessed: 02/02/25 Feeling nervous, anxious, or on edge: 0 = Not at all Not being able to stop or control worryin = Several days Worrying too much about different things: 0 = Not at all Trouble relaxin = Several days Being so restless that it is hard to sit still: 0 = Not at all Becoming easily annoyed or irritable: 0 = Not at all Feeling afraid as if something awful might happen: 0 = Not at all Total NOELLE-7 score (0-4 normal; 5-9 mild; 10-14 moderate; 15-21 severe): 2 Source: Developed by Drs. William Merino, Omaira Proctor, Aaron Judd and colleagues, with an educational palomo from [employer]. NOELLE-7 Assessment Billing NOELLE-7 Assessment Tool: NOELLE-7 Assessment 65739 Review of Systems Const Denies body aches, Denies fatigue, Denies fever(s), Denies headache(s) and Denies weakness Eyes Reports no additional complaints ENT Denies dizziness, Denies headache(s), Denies nasal congestion and Denies sore throat Card Denies chest pain, Denies lightheadedness, Denies palpitations and Denies dyspnea Resp Denies chest congestion, Denies cough and Denies dyspnea GI Reports as per HPI, Denies abdominal pain, Denies change in bowel habits and Denies heartburn Denies urinary frequency, Denies dysuria, Reports urinary incontinence and Denies urinary urgency Musc Reports no additional complaints Skin/Breast Denies lesions and Denies rash Neuro Denies dizziness, Denies headache(s) and Denies weakness Psych Reports as per HPI Endo Denies fatigue, Denies polydipsia, Denies polyuria and Denies palpitations Dane/Lymph Denies easy bruising Aller/Immun Denies seasonal rhinorrhea Physical exam (Primary Care) Vital Signs: Last Vital Signs Temp 98.1 F 02/02/25 09:22 Pulse 98 02/02/25 09:22 Resp 17 02/02/25 09:22 BP 126/70 02/02/25 09:22 Pulse Ox 99 02/02/25 09:22 Oxygen Delivery Method Room Air 02/02/25 09:22 BMI result Body Mass Index 26.3 Tobacco/Smoking Status: Tobacco use Status Tobacco use date assessed 02/02/25 02/02/25 09:26 Patient Tobacco Use Status Former Tobacco user 02/02/25 09:20 e-Cigarette/Vaping Use Never Used 02/02/25 09:20 PHQ-9: PHQ-9 Score PHQ-9: Total score 0 02/02/25 09:45 Depression Screening Interpretation: Negative Thrive Assessment: Date of Thrive Assessment Date Thrive assessed 02/02/25 02/02/25 09:20 Currently or been in a relationship where the following occur: No concerns reported Const General: no acute distress and alert Orientation/consciousness: patient oriented x3 HENMT Mouth: Normal oral and palatal mucosa present and moist mucous membranes Eyes General: appearance normal, both eyes and all related structures Neck Neck: Yes full ROM, Yes no lymphadenopathy and Yes supple Resp Effort & Inspection: normal respiratory effort and able to speak in complete sentences Auscultation: clear to auscultation bilaterally Cardio Rate: regular rate Rhythm: regular rhythm Heart sounds: S1 normal heart sound present and S2 normal heart sound present GI Palpation (GI): Soft to palpation, nontender and no masses Auscultation: normal bowel sounds Back/Spine/Pelvis Back: No back tenderness Skin General skin exam: no rashes or lesions noted Neuro General: patient oriented x3, gait normal, tone normal, moves all extremities, Normal light touch and pain sensation and no focal motor deficits Cranial nerves: Yes CN's II-XII intact bilaterally Cognition (Neuro): normal cognition Extrem General: Yes full ROM, Yes no joint enlargement, Yes no clubbing, cyanosis or edema and Yes no calf tenderness Psych Appearance: grossly normal and well kempt Mental Status: mental status grossly normal Speech and movement: Normal speech and movement present Affect: normal affect Attitude: cooperative Thought process: Normal thought process present Thought content: Normal thought content present Results Reviewed Results Reviewed: cherelle: Ana Johns Age/Sex: 64/F : 1960 Unit#: [id number] Attend Dr: Paloma Benítez MD Re01/31/25 Status: DEP REF Location: [facility] Disch: SPEC : [id number] FRANCIA: 01/31/25 STATUS: COMP REQ : [id number] RECD: 01/31/[address]: Paloma Beíntez MD COMP: 01/31/25 ENTERED: 01/31/[address]: ORDERED: Met Prof Fast, AST, ALT, Lipid Panel, Vitamin D 25-OH Test Result Flag Reference Sodium 136 135-145 mmol/L Potassium 3.8 # 3.3-5.1 mmol/L CL 98 96-108 mmol/L CO2 28 22-29 mmol/L Gap 14 12-20 BUN 23 H 9-16 mg/dL Creat 1.11 0.5-1.4 mg/dL eGFR 50 Chronic Kidney Disease: Estimated GFR < 60 mL/min/1.73m2 Severe Kidney Disease: Estimated GFR < 15 mL/min/1.73m2 FBS 115 H 60-99 mg/dL A fasting glucose from 100-125 mg/dl is considered impaired (pre-diabetes). CA 9.0 8.4-10.2 mg/dL AST (GOT) 19 5-31 U/L ALT (GPT) 16 0-31 U/L Triglyceride 94 <150 mg/dL Desirable Triglyceride: less than 150 mg/dL Borderline High Triglyceride 150-199 mg/dL High Triglyceride: 200-499 mg/dL Very High Triglyceride: greater than or equal to 5OO mg/dL Cholesterol 148 <200 mg/dL Desirable Cholesterol: less than 200 mg/dL Borderline High Cholesterol: 200-239 mg/dL High Cholesterol: greater than 239 mg/dL LDL Calculated 78 <100 mg/dL Desirable LDL: less than 100 mg/dL Near Optimal/Above Optimal LDL: 110-129 mg/dL Borderline High LDL: 130-159 mg/dL High LDL: 160-189 mg/dL Very High LDL: greater than or equal to 190 mg/dL HDL 52 >40 mg/dL Desirable HDL: greater than 40 mg/dL Note: This HDL assay may give artificially low results in patients with liver disease. Vit D 25-OH Tot 116.7 >30 ng/mL Health Based Reference Values* < 20 ng/mL Deficient 20-30 ng/mL Insufficient > 30 ng/mL Sufficient Laboratory Tests 01/31/25 06:31 Estimat Average Glucose 131 Hemoglobin A1c % 6.2 H Urine Creatinine 71.36 Urine Microalbumin 7.0 Microalb/Creat Ratio 9.8 Coding Level of Care Code Est Pt Level 4 (78901) Complex EM visit Add On G2211 Diagnoses Nausea and vomiting R11.2 Type 2 diabetes mellitus without complication, without long-term current use of insulin E11.9 Essential hypertension I10 Dyslipidemia E78.5 Generalized anxiety disorder F41.1 Additional Codes NOELLE-7 Assessment Billing - NOELLE-7 Assessment Tool: NOELLE-7 Assessment 07357 ([id number]) PHQ-9 - 92005 - PHQ-9 Billing: Yes ([id number]) Assessment & Plan Assessment & Plan (1) Nausea and vomiting: Code(s): R11.2 - Nausea with vomiting, unspecified Category: Medical Plan: Ordered ultrasound of abdomen, prescription sent for ondansetron 4 mg per tablet to take 1 tablet as needed every 8 hours for nausea/vomiting (2) Type 2 diabetes mellitus without complication, without long-term current use of insulin: Code(s): E11.9 - Type 2 diabetes mellitus without complications Category: Medical Plan: Recent lab results reviewed with patient, with sugar and hemoglobin A1c stable and at goal. Continued on metformin 1000 mg twice a day in addition to continuing to follow diabetic diet and regular exercise with patient. Counseled regarding importance of yearly diabetes retinopathy screening. Patient advised to inspect feet daily, for any signs of injury, callus or infection. Compliance with diet and regular exercise again stressed. Blood pressure goal is less than 130/80, goal LDL is less than 100 and goal hemoglobin A1c is less than 7% follow-up appointment made in--5-months, after fasting labs done. (3) Essential hypertension: Code(s): I10 - Essential (primary) hypertension Category: Medical Plan: Blood pressure at goal of less than 130/80. Continue with lisinopril HCTZ 20-25 mg 1 tablet daily. Reinforced importance of following a low sodium diet, getting regular exercise, and lowering stress levels. (4) Dyslipidemia: Code(s): E78.5 - Hyperlipidemia, unspecified Category: Medical Plan: Reviewed recent fasting lipid profile with patient with levels at goal . Continue atorvastatin 20 mg daily and [place] 3 fatty acid supplements 1 capsule t wice a day , in addition to adherence to low-cholesterol diet and regular exercise, at least 30 minutes 3 to 4 times a week. Advised patient to make healthy food choices, eat more fruits, vegetables, whole grains, wild caught fish and low-fat dairy. Limit amount of meat and fried or fatty food products, as well as processed foods and fast foods. Follow-up scheduled with repeat fasting lipid panel in 5 months. (5) Generalized anxiety disorder: Code(s): F41.1 - Generalized anxiety disorder Category: Medical Plan: Anxiety disorder Stable and controlled on buspirone 5 mg 1 tablet twice a day Orders: Orders US abdomen complete 02/02/25 R11.2 - Nausea with vomiting, unspecified Medications: New ondansetron HCl 4 mg PO Q8H PRN 20 tabs 0RF nausea and vomiting Refilled buspirone 5 mg PO BID 180 tabs 4RF F41.1 - Generalized anxiety disorder lisinopril-hydrochlorothiazide 20-25 mg 1 tab PO DAILY 90 tabs 4RF
[2025-02-02 09:22] VITALS: BP 126/70; PULSE 98; RESP 17; TEMP 36.7; O2SAT 99; BMI 26.3
--- OUTSIDE RECORDS SUMMARY | 2025-02-02 10:06 | XMS_ITS | Clinical Summary ---
Author Organization [facility] Address [address] [place] [phone] Phone Care Team Providers Care Hvac Estimator Name Role Phone Maikol Benítez MD Primary Care Provider [phone]- [phone] Allergies No known active allergies Medications atorvastatin [...] and 100 mg in the evening. Active [place]-3 Fatty Acids (Fish Oil) 1200 MG capsule [...] Office Visit [facility] [address] [phone] Rajendra Cortez MD Stage 3 chronic kidney [...] Office Visit [facility] [address] [phone] Rajendra Cortez MD [address] [phone] Health Maintenance Due Date Last Done Comments [...] clinical diagnosis. THIS TEST WAS PERFORMED AT: [facility] [address] [place] [address] [phone] FRANCESCA MUNOZ MD Blood (Blood, Venous) 01/01/2025 1:35 PM EST 01/01/2025 1:35 PM EST us Rajendra Cortez MD LAB BLOOD ORDERABLES Final Resul t YANIRA See order comments [place] [address] from Last 3 Months Insurance [facility] [employer]IRAN [id number] Care Teams Hvac Estimator Relationship Specialty Start Date End Date Makiol Benítez MD [address] [place] [address] [place] [address] PCP - General Internal Medicine 10/13/24
== END 2025-02-02 10:04 | disposition home or self-care (01) ==
LOC: HO.HMCC 09:18
PROVIDERS: PCP Internal Medicine; Visit Provider Internal Medicine
DX: R11.2 Nausea with vomiting, unspecified (principal); E11.9 Type 2 diabetes mellitus without complications; I10 Essential (primary) hypertension; E78.5 Hyperlipidemia, unspecified; F41.1 Generalized anxiety disorder

== ENCOUNTER → 2025-02-02 09:16 | Outpatient (BNVA) | payer OTHER, SELFPAY | PROVIDERS: PCP Internal Medicine; Visit Provider Internal Medicine | DX: R11.2 Nausea with vomiting, unspecified (principal); E11.9 Type 2 diabetes mellitus without complications; I10 Essential (primary) hypertension; E78.5 Hyperlipidemia, unspecified; F41.1 Generalized anxiety disorder | CPT/HCPCS: 96127; 99212 ==

== ENCOUNTER 2025-03-09 08:28 | Outpatient (REF) | payer OTHER, SELFPAY ==
--- NOTE | ~2025-03-09 | US_ITS ---
CLINICAL HISTORY: R11.2 - Nausea with vomiting, unspecified US abdomen complete Comparison: None Findings: The visualized pancreas is normal. The aorta and inferior vena cava are normal caliber. The liver is normal in size and echotexture. There is no intrahepatic bile duct dilatation. The common duct is 5 mm in diameter. The gallbladder is normal. There is no sonographic Prieto sign. The main portal vein is antegrade. The right kidney is 9.1 cm in length. Right lower pole renal cyst measuring 0.6 x 0.7 x 0.5 cm. The left kidney is 10.2 cm in length. The spleen is normal. No ascites. IMPRESSION: 1. Normal complete abdominal ultrasound. This document has been electronically signed by: Josiah Hardwick MD on 03/09/2025 20:00:06
--- OUTSIDE RECORDS SUMMARY | 2025-03-09 08:42 | XMS_ITS | Clinical Summary ---
Author Organization [facility] Address [address] [place] [phone] Phone Care Team Providers Care Restaurant Area Manager Name Role Phone Maikol Benítez MD Primary Care Provider [phone] Allergies No known active allergies Medications atorvastatin (LIPITOR) 20 MG tablet Take 20 mg by mouth 1 (one) time each day 4 Active busPIRone (BUSPAR) 5 MG tablet Take 5 mg by mouth in the morning and 5 mg in the evening. 4 Active lisinopril-hydr oCHLOROthiazide (PRINZIDE,ZESTO RETIC) 20-25 MG per tablet Take 1 tablet by mouth 1 (one) time each day 4 Active Rocklatan 0.02-0.005 % solution INSTILL 1 DROP IN BOTH EYES EVERY NIGHT 4 Active metFORMIN (GLUCOPHAGE) 1000 MG tablet Take 1,000 mg by mouth in the morning and 1,000 mg in the evening. 4 Active docusate sodium (COLACE) 100 MG capsule Take 100 mg by mouth in the morning and 100 mg in the evening. Active Tatum-3 Fatty Acids (Fish Oil) 1200 MG capsule delayed-release Take by mouth Active carboxymethylce llulose (REFRESH PLUS) 0.5 % solution 1 drop 3 (three) times a day if needed for dry eyes Active Empagliflozin (Jardiance) 10 MG tablet Take 10 mg by mouth in the morning. 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.] Sign Reading Time Taken Comments Blood Pressure 137/72 02/21/2025 4:22 PM EDT Pulse 99 02/21/2025 4:22 PM EDT Temperature - - Respiratory Rate - - Oxygen Saturation - - Inhaled Oxygen Concentration - - Weight 63 kg (139 lb) 02/21/2025 4:22 PM EDT Height - - Body Mass Index - - Plan of Treatment Upcoming Encounters Date Type Department Care Team (Late st Contact Info) Description 07/04/2025 4:15 PM EDT Office Visit [facility] [place] [id number] [phone] Rajendra Cortez MD [address] [address] Health Maintenance Due Date Last Done Comments Breast Cancer Screening 1960 Pneumococcal Vaccine: 50+ Ye ars (1 of 2 - PCV) 1980 Colorectal Cancer Screening: Annual FOBT 2010 Colorectal Cancer Screening: Colonoscopy 2010 Colorectal Cancer Screening: Sigmoidoscopy 2010 Diabetes: Hemoglobin A1C 12/17/2024 Diabetes: Ophthalmology Exam 12/17/2024 Diabetes: Pedal Pulse Checked 12/17/2024 Diabetes: Sensory Foot Exam 12/17/2024 Diabetes: Visual Foot Exam 12/17/2024 Influenza Vaccine (Season Ended) 2025 Hepatitis B Vaccine Aged Out No longe r eligible based on patient's age to complete this topic Procedures Procedure Name Priority Date/Time Associated Diagnosis Comments US RENAL LIMITED Routine 02/15/2025 10:4 2 AM EDT Stage 3 chronic kidney disease, not otherwise specified (HCC) PROTEIN ELECTROPHORESIS, SERUM Routine 01/01/2025 1:35 PM EST Stage 3 chronic kidney disease, not otherwise specified (HCC) from Last 3 Months Results * Ultrasound renal limited (02/15/2025 10:42 AM EDT) Anatomical Region Laterality Modality Abdomen, Pelvis Ultrasound Rajendra Cortez MD CV VASCULAR PROCEDURES Final Res ult * (ABNORMAL) Protein electrophoresis, serum (01/01/2025 1:35 [...] clinical diagnosis. THIS TEST WAS PERFORMED AT: [facility] [address] [place] [address] [phone] FRANCESCA MUNOZ MD Blood (Blood, Venous) 01/01/2025 1:35 PM EST 01/01/2025 1:35 PM EST Rajendra Cortez MD LAB BLOOD ORDERABLES Final Resul t [facility] See order comments [place] [address] from Last 3 Months Insurance [facility] Care Teams Restaurant Area Manager Relationship Specialty Start Date End Date Maikol Benítez MD 1960 [place] [address] PCP - General Internal Medicine 10/13/24
== END 2025-03-09 08:29 | disposition home or self-care (01) ==
LOC: HO.HMGCX 08:28
PROVIDERS: PCP Internal Medicine; Visit Provider Internal Medicine
DX: R11.2 Nausea with vomiting, unspecified (principal)
CPT/HCPCS: 76700

== ENCOUNTER → 2025-03-09 08:30 | Outpatient (BNV) | payer OTHER, SELFPAY | PROVIDERS: PCP Internal Medicine; Visit Provider Radiology Diagnostic Radiology | DX: R11.2 Nausea with vomiting, unspecified (principal) | CPT/HCPCS: 76700 ==

== ENCOUNTER 2025-06-11 07:24 | Outpatient (REF) | payer OTHER, SELFPAY ==
[2025-06-11 11:38] LABS: Anion Gap 16 (12-20); Blood Urea Nitrogen 21 mg/dL (9-16); Calcium 9.3 mg/dL (8.4-10.2); Carbon Dioxide 26 mmol/L (22-29); Chloride 101 mmol/L (96-108); Estimated Glomerular Filt Rate 46; Potassium 5.0 mmol/L (3.3-5.1); Sodium 138 mmol/L (135-145)
[2025-06-11 11:55] LABS: Total Protein Urine Random < 7 mg/dL (<12)
== END 2025-06-11 07:25 | disposition home or self-care (01) ==
LOC: HO.HMGCLDS 07:24
PROVIDERS: PCP Internal Medicine; Referring Provider Internal Medicine Nephrology; Visit Provider Internal Medicine
DX: H47.22 Hereditary optic atrophy (principal); E11.9 Type 2 diabetes mellitus without complications; I10 Essential (primary) hypertension; E78.5 Hyperlipidemia, unspecified; F41.1 Generalized anxiety disorder
CPT/HCPCS: 36415; 80051; 82306; 82310; 82565; 82570; 84156; 84520

== ENCOUNTER 2025-07-18 12:49 | Outpatient (AMB) | payer OTHER, SELFPAY ==
[2025-07-18 12:57] VITALS: BP 128/70; PULSE 99; RESP 16; TEMP 36.9; O2SAT 95; BMI 24.7
--- NOTE | 2025-07-18 12:57 | A.OFFPC_ITS ---
Vital Signs 07/18/25 12:57 Height 5 ft 1 in Weight 131 lb BMI 24.7 BP 128/70 Blood Pressure Location Lt brachial Position Sitting Respiration 16 Pulse 99 Pulse Source Pulse Oximeter Temp 98.4 F Temp Source Oral Pulse Oximetry (%) 95 Oxygen Delivery Method Room Air Intake Visit Reasons: PE reschedule Intake Note: Pt is here today for her PE: Last cologuard 03/12/23 Allergies No Known Allergies Allergy (Verified 07/18/25 13:04) Medication List - Last Reconciled 07/18/25 by Paloma Benítez MD aspirin (Adult Aspirin Regimen) 81 mg PO DAILY atorvastatin 20 mg PO DAILY buspirone 5 mg PO BID docusate sodium (Stool Softener) 100 mg PO DAILY empagliflozin (Jardiance) 10 mg PO DAILY lisinopril-hydrochlorothiazide 20-25 mg 1 tab PO DAILY loratadine (Claritin) 10 mg PO DAILY PRN metformin 1,000 mg PO BID netarsudil-latanoprost 0.02-0.005 % (Rocklatan) 1 drp ophthalmic (eye) QPM omega-3 fatty acids (Fish Oil Concentrate) 1,000 mg PO DAILY propylene glycol 0.6% (Systane Complete) 1 drp ophthalmic (eye) DAILY PRN Tobacco use date assessed: 07/18/25 Dental Screening Dental Screen Date: 07/18/25 Did you have a dental visit in the last 12 months?: Yes Did you have a dental problem in the last 6 months where you did not have access to dental care?: No Was dental information given to patient?: Patient has dentist HPI PE reschedule HPI Details -64-year-old female presenting today for physical exam. - Reports severe scalp itching for two m [facility], initially suspecting head lice due to contact with children at work. Amth-cvy-dosfltx lice treatments was tried, with no improvement, no lice or nits on inspection, but noted to have dry patches on scalp - Preventative care includes overdue blanka mogram and Pap smear, with the last mammogram before the pandemic and uncertain Pap smear date. - Completed colon cancer screening with Cologuard test done in 2022 with negative findings. Due again next year. -up-to-date with her yearly eye exams, g oes to [facility] , and up-to-date with vaccinations, including flu, RSV, shingles, and tetanus. -she has dyslipidemia, diabetes mellitus and hypertension compliant with her treatment, last fasting lipids and hemoglobin A1c were did acceptable limits, due for repeat fasting labs. She sees Dr. 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, currently with stable kidney function [facility] Medical History (Updated 07/25/25 @ 14:57 by Paloma Benítez MD) CKD stage 3 secondary to diabetes Decreased hearing of both ears Dyslipidemia Generalized anxiety disorder Lebers optic atrophy Type 2 diabetes mellitus without complication, without long-term current use of insulin Hyperlipidemia Essential hypertension Surgical History [place] teeth extracted Family History Father Brain cancer Lung cancer Mental health disorder Mother HTN (hypertension) Diabetes mellitus Breast cancer Sister HTN (hypertension) Skin cancer Paternal Grandfather Stomach cancer Maternal Aunt Multiple sclerosis Brother No problems noted. Sister No problems noted. Sister No problems noted. Social History Housing: House Alcohol intake: former Patient Tobacco Use Status: Former Tobacco user e-Cigarette/Vaping Use: Never Used Current occupational status: employed Cognitive needs: No Hearing needs: No Vision needs: Yes Questionnaire PHQ-9 Over the last 2 weeks, how often have you been bothered by any of the following problems? 1. Little interest or pleasure in doing things: not at all 2. Feeling down, depressed, or hopeless: not at all 3. Trouble falling or staying asleep, or sleeping too much: not at all 4. Feeling tired or having little energy: not at all 5. Poor appetite or overeating: not at all 6. Feeling bad about yourself - or that you are a failure or have let yourself or your family down: not at all 7. Trouble concentrating on things, such as reading the newspaper or watching television: not at all 8. Moving or speaking so slowly that other people could have noticed. Or the opposite - being so fidgety or restless that you have been moving around a lot more than usual: not at all 9. Thoughts that you would be better off or of hurting yourself in some way: not at all Total score: 0 Depression Screening Interpretation: Negative Depression Screening Done: Yes 25027 - PHQ-9 Billing: Yes Source: Developed by Drs. William Merino, Omaira Proctor, Aaron Judd and colleagues, with an educational palomo from [employer]. Thrive Questionnaire Date Thrive assessed: 02/02/25 I am a: Patient What is your living situation today?: I have a steady place to live Within the past 12 months, did the food you bought not last and you didn't have the money to get more?: Never true Within the past 12 months, did you worry whether your food would run out before you got money to buy more?: Never true Do you have trouble paying for medicines?: No Do you have trouble getting transportation to medical appointments?: No Do you have trouble paying your heating and electricity bill?: No Do you have trouble taking care of your child, family member or friend?: No Do you have trouble with day-to-day activities such as bathing, preparing meals, shopping, managing finances, etc.?: No Are you currently unemployed and looking for a job?: No Are you interested in more education?: No Please select the resources that you would like help with: None Currently or been in a relationship where the following occur: No concerns reported THRIVE Score: 0 AUDIT C Alcohol Use Questionnaire (AUDIT-C) 1. How often do you have a drink containing alcohol?: Never Total Score: 0 Score Reviewed/Action Taken: Yes NOELLE-7 AMB Questionnaire NOELLE-7 Date NOELLE - 7 assessed: 07/18/25 Feeling nervous, anxious, or on edge: 0 = Not at all Not being able to stop or control worryin = Not at all Worrying too much about different things: 0 = Not at all Trouble relaxin = Not at all Being so restless that it is hard to sit still: 0 = Not at all Becoming easily annoyed or irritable: 0 = Not at all Feeling afraid as if something awful might happen: 0 = Not at all Total NOELLE-7 score (0-4 normal; 5-9 mild; 10-14 moderate; 15-21 severe): 0 Source: Developed by Drs. William Merino, Omaira Proctor, Aaron Judd and colleagues, with an educational palomo from [employer]. NOELLE-7 Assessment Billing NOELLE-7 Assessment Tool: NOELLE-7 Assessment 79605 Review of Systems Const Denies body aches, Denies fatigue, Denies fever(s), Denies headache(s) and Denies weakness Eyes Reports no additional complaints ENT Denies dizziness, Denies headache(s), Denies nasal congestion and Denies sore throat Card Denies chest pain, Denies lightheadedness, Denies palpitations and Denies dyspnea Resp Denies chest congestion, Denies cough and Denies dyspnea GI Reports as per HPI, Denies abdominal pain, Denies change in bowel habits and Denies heartburn Denies urinary frequency, Denies dysuria, Reports urinary incontinence and Denies urinary urgency Musc Reports no additional complaints Skin/Breast Reports as per HPI Neuro Denies dizziness, Denies headache(s) and Denies weakness Psych Reports as per HPI Endo Denies fatigue, Denies polydipsia, Denies polyuria and Denies palpitations Dane/Lymph Denies easy bruising Aller/Immun Denies seasonal rhinorrhea Physical exam (Primary Care) Vital Signs: Last Vital Signs Temp 98.4 F 07/18/25 12:57 Pulse 99 07/18/25 12:57 Resp 16 07/18/25 12:57 BP 128/70 07/18/25 12:57 Pulse Ox 95 07/18/25 12:57 Oxygen Delivery Method Room Air 07/18/25 12:57 BMI result Body Mass Index 24.7 Tobacco/Smoking Status: Tobacco use Status Tobacco use date assessed 07/18/25 07/18/25 13:02 Patient Tobacco Use Status Former Tobacco user 07/18/25 13:02 e-Cigarette/Vaping Use Never Used 07/18/25 13:02 PHQ-9: PHQ-9 Score PHQ-9: Total score 0 07/18/25 13:02 Depression Screening Interpretation: Negative Thrive Assessment: Date of Thrive Assessment Date Thrive assessed 02/02/25 07/18/25 13:02 Currently or been in a relationship where the following occur: No concerns reported Advance Care Planning discussion: Completed/Scanned Date of discussion: 07/18/25 Who was present: Patient Forms completed: Health Care Proxy Time spent: 16-45 minutes Actual minutes spent: 2 Const General: no acute distress and alert Orientation/consciousness: patient oriented x3 HENMT Mouth: Normal oral and palatal mucosa present and moist mucous membranes Eyes General: appearance normal, both eyes and all related structures Neck Neck: Yes full ROM, Yes no lymphadenopathy and Yes supple Resp Effort & Inspection: normal respiratory effort and able to speak in complete sentences Auscultation: clear to auscultation bilaterally Cardio Rate: regular rate Rhythm: regular rhythm Heart sounds: S1 normal heart sound present and S2 normal heart sound present GI Palpation (GI): Soft to palpation, nontender and no masses Auscultation: normal bowel sounds Back/Spine/Pelvis Back: No back tenderness Skin Other: Dry patches on scalp, no nits or lice noted Neuro General: patient oriented x3, gait normal, tone normal, moves all extremities, Normal light touch and pain sensation and no focal motor deficits Cranial nerves: Yes CN's II-XII intact bilaterally Cognition (Neuro): normal cognition Extrem General: Yes full ROM, Yes no joint enlargement, Yes no clubbing, cyanosis or edema and Yes no calf tenderness Psych Appearance: grossly normal and well kempt Mental Status: mental status grossly normal Speech and movement: Normal speech and movement present Affect: normal affect Results Reviewed Results Reviewed: Name: Ana Johns Age/Sex: 64/F [facility] 1960 [id number] [id number] Attend Dr: Paloma Benítez MD Re06/11/25 Status: DEP REF Location: [facility] Disch: SPEC : [id number] FRANCIA: 06/11/25 STATUS: COMP REQ : [id number] RECD: 06/11/[address]: Ángel Cortez MD COMP: 06/11/258 ENTERED: 06/11/[address]: Paloma Benítez MD ORDERED: Lytes, BUN, Creat, CA, Vitamin D 25-OH Test Result Flag Reference Sodium 138 135-145 mmol/L Potassium 5.0 # 3.3-5.1 mmol/L CL 101 96-108 mmol/L CO2 26 22-29 mmol/L Gap 16 12-20 BUN 21 H 9-16 mg/dL Creat 1.19 0.5-1.4 mg/dL eGFR 46 Chronic Kidney Disease: Estimated GFR < 60 mL/min/1.73m2 Severe Kidney Disease: Estimated GFR < 15 mL/min/1.73m2 CA 9.3 8.4-10.2 mg/dL Vitamin D 25-OH 84.8 >30 ng/mL Health Based Reference Values* < 20 ng/mL Deficient 20-30 ng/mL Insufficient > 30 ng/mL Sufficient Coding Level of Care Code Est Pt Prev Care 40-64y(69500) Diagnoses Annual visit for general adult medical examination with abnormal findings Z00.01 Essential hypertension I10 Type 2 diabetes mellitus without complication, without long-term current use of insulin E11.9 Lebers optic atrophy H47.22 Generalized anxiety disorder F41.1 Dyslipidemia E78.5 Decreased hearing of both ears H91.93 Screening for malignant neoplasm of cervix Z12.4 Advance directive discussed with patient Z71.89 CKD stage 3 secondary to diabetes E11.22; N18.30 Itchy scalp L29.9 Additional Codes NOELLE-7 Assessment Billing - NOELLE-7 Assessment Tool: NOELLE-7 Assessment 31738 ([id number]) PHQ-9 - 68235 - PHQ-9 Billing: Yes ([id number]) Vital Signs *Quality* - Advance Care Planning discussion: Completed/Scanned ([id number]) Vital Signs *Quality* - Time spent: 16-45 minutes ([id number]) Assessment & Plan Assessment & Plan (1) Annual visit for general adult medical examination with abnormal findings: Code(s): Z00.01 - Encounter for general adult medical examination with abnormal findings (2) Essential hypertension: Code(s): I10 - Essential (primary) hypertension Category: Medical (3) Type 2 diabetes mellitus without complication, without long-term current use of insulin: Code(s): E11.9 - Type 2 diabetes mellitus without complications Category: Medical (4) Lebers optic atrophy: Comment: currently being followed by [facility] [place] Code(s): H47.22 - Hereditary optic atrophy Category: Medical (5) Generalized anxiety disorder: Code(s): F41.1 - Generalized anxiety disorder Category: Medical (6) Dyslipidemia: Code(s): E78.5 - Hyperlipidemia, unspecified Category: Medical (7) Decreased hearing of both ears: Code(s): H91.93 - Unspecified hearing loss, bilateral Category: Medical (8) Screening for malignant neoplasm of cervix: Code(s): Z12.4 - Encounter for screening for malignant neoplasm of cervix (9) Advance directive discussed with patient: Code(s): Z71.89 - Other specified counseling (10) CKD stage 3 secondary to diabetes: Code(s): E11.22 - Type 2 diabetes mellitus with diabetic chronic kidney disease; N18.30 - Chronic kidney disease, stage 3 unspecified Category: Medical (11) Itchy scalp: Code(s): L29.9 - Pruritus, unspecified Plan Itchy scalp likely due to seborrheic dermatitis, has tried vbsr-dhu-dhrhfec dandruff shampoo with no improvement. Referred to dermatology for further evaluation management.. Referred for screening mammogram and referred back to OBGYN for her routine Pap and pelvic exam. Due for repeat Cologuard testing next year Stressed importance of good control diabetes mellitus, and hypertension as well as lipids. Sees Dr. Cortez for her nephrology consultation every year. Goes to [facility] for her routine eye exam and follow-up on Ashley's optic atrophy and yearly retinopathy screening. Fasting labs ordered to check hemoglobin A1c, lipids, liver enzymes and hemoglobin A1c. Recent eye exams and vaccinations, including flu, RSV, shingles, and tetanus, are current, supporting overall health maintenance. Patient was informed and verbally consented to the use of an ambient scribe for clinic note documentation during this visit. Orders: Orders Lipid Panel 07/18/25 E11.9 - Type 2 diabetes mellitus without complications, E78.5 - Hyperlipidemia, unspecified, F41.1 - Generalized anxiety disorder, I10 - Essential (primary) hypertension, Z00.01 - Encounter for general adult medical examination with abnormal findings Hemoglobin A1c 07/18/25 E11.9 - Type 2 diabetes mellitus without complications, E78.5 - Hyperlipidemia, unspecified, F41.1 - Generalized anxiety disorder, I10 - Essential (primary) hypertension, Z00.01 - Encounter for general adult medical examination with abnormal findings Alanine Aminotransferase 07/18/25 E11.9 - Type 2 diabetes mellitus without complications, E78.5 - Hyperlipidemia, unspecified, F41.1 - Generalized anxiety disorder, I10 - Essential (primary) hypertension, Z00.01 - Encounter for general adult medical examination with abnormal findings Aspartate Amino Transferase 07/18/25 E11.9 - Type 2 diabetes mellitus without complications, E78.5 - Hyperlipidemia, unspecified, F41.1 - Generalized anxiety disorder, I10 - Essential (primary) hypertension, Z00.01 - Encounter for general adult medical examination with abnormal findings MM tomosynthesis screening BI 07/18/25 Z12.31 - Encounter for screening mammogram for malignant neoplasm of breast Referrals [facility] Referral Z12.4 - Encounter for screening for malignant neoplasm of cervix
--- OUTSIDE RECORDS SUMMARY | 2025-07-18 13:56 | XMS_ITS | Clinical Summary ---
Author Organization [facility] Address [address] [place] [phone] Phone Care Team Providers Care Sweeper Operator Highways Name Role Phone Maikol Benítez MD Primary Care Provider +1- [phone] Allergies No known active allergies Medications atorvastatin [...] and 100 mg in the evening. Active [place]-3 Fatty Acids (Fish Oil) 1200 MG capsule delayed-release Take by mouth Active carboxymethylce llulose (REFRESH PLUS) 0.5 % solution 1 drop 3 (three) times a day if needed for dry eyes Active Jardiance 10 MG tablet Take by mouth 1 (one) time each day in the morning 05/21/2025 Active aspirin (ST JOSE C) 81 MG EC tablet Take 81 mg by mouth 1 (one) time each day Active omega-3 (FISH OIL) 300 MG capsule Take by mouth 1 (one) time each day Active Active Problems Problem Noted Date Diagnosed Date Dyslipidemia 12/17/2024 Anxiety disorder 12/17/2024 Type 2 diabetes mellitus with complication 12/17 Optic atrophy 12/17/2024 Essential (primary) hypertension 12/17/2024 Encounters Date Type Department Care Team Description 07/04/2025 3:30 PM EDT [facility] Visit [facility] [address] [phone] Rajendra Cortez MD Stage 3 chronic kidney disease, not otherwise specified (HCC) (Primary Dx); Diabetes mellitus, not otherwise specified (HCC); Hypertension 06/11/2025 Orders Only [facility] [address] [phone] Rajnedra Cortez MD from Last 3 Months Social History Tobacco Use Types Packs/Day Years Used Date Smoking Tobacco: Never Assessed Comments Unknown Sex and Gender Information Value Date Recorded Sex Assigned at Not on file Legal Sex Female 3:20 PM EST Gender Identity Not on file Sexual Orientation Not on file Last Filed Vital Signs Vital Sign Reading Time Taken Comments Blood Pressure 104/58 07/04/2025 3:42 PM EDT Pulse 84 07/04/2025 3:42 PM EDT Temperature - - Respiratory Rate - - Oxygen Saturation - - Inhaled Oxygen Concentration - - Weight 59 kg (130 lb) 07/04/2025 3:42 PM EDT Height - - Body Mass Index - - Plan of Treatment Upcoming Encounters Date Type Department Care Team (Late st Contact Info) Description 07/03/2026 3:00 PM EDT [facility] Visit [facility] [address] [phone] Rajendra Cortez MD [address] [phone] Health Maintenance Due Date Last Done Comments Breast Cancer Screening 1960 Pneumococcal Vaccine: 50+ Ye ars (1 of 2 - PCV) 1980 Colorectal Cancer Screening: Annual FOBT 2010 Colorectal Cancer Screening: Colonoscopy 2010 Colorectal Cancer Screening: Sigmoidoscopy 2010 Diabetes: Hemoglobin A1C 12/17/2024 Diabetes: Ophthalmology Exam 12/17/2024 Diabetes: Pedal Pulse Checked 12/17/2024 Diabetes: Sensory Foot Exam 12/17/2024 Diabetes: Visual Foot Exam 12/17/2024 Influenza Vaccine (#1) 2025 Hepatitis B Vaccine Aged Out No longe r eligible based on patient's age to complete this topic Procedures Procedure Name Priority Date/Time Associated Diagnosis Comments PROTEIN / CREATININE RATIO, URINE Routine 06/11/2025 11:22 AM EDT ALBUMIN, URINE, RANDOM Routine 06/11/2025 11:22 AM EDT VITAMIN D 25 HYDROXY Routine 06/11/2025 11:04 AM EDT CALCIUM Routine 06/11/2025 11:04 AM EDT CREATININE, BLOOD Routine 06/11/2025 11: 04 AM EDT BUN Routine 06/11/2025 11:04 AM EDT ELECTROLYTE PANEL Routine 06/11/2025 11: 04 AM EDT from Last 3 Months Results * Protein, Total, Random Urine w/Creatinine (Protein/Creat Ratio) (06/11/2025 11:22 AM EDT) Protein Urine Random <7 <12 mg/dL See order comments Protein/Creatin ine Ratio, Urine TNP <0.2 See order comments Comment: Unable to calculate urine protein creatinine ratio due to low creatinine or protein result. 06/11/2025 11:2 2 AM EDT 06/11/2025 11:22 AM EDT us Rajendra Cortez MD LAB URINE ORDERABLES Final Resul t [place] See order comments [place] [address] * Albumin, urine, random (06/11/2025 11:22 AM EDT) Creatinine, Urine 25.68 mg/dL Se e order comments Urine Microalbumin <5.0 mg/L See order comments Microalbumin/Crea tinine Ratio TNP <30 ug/mg cr See order comments Comment: Unable to calculate albumin/creatinine ratio due to low microalbumin or creatinine result. 06/11/2025 11:2 2 AM EDT 06/11/2025 11:22 AM EDT us Rajendra Cortez MD LAB URINE ORDERABLES Final Resul t Performing Organization Address City/[facility]/ZIP Co de Phone Number [place] See order comments [place] [address] * Creatinine (06/11/2025 11:04 AM EDT) Creatinine Serum 1.19 0.5 - 1.4 mg/dL See order comments eGFR (Calc) 46 See orde r comments Comment: Chronic Kidney Disease: Estimated GFR < 60 mL/min/1.73m2 Severe Kidney Disease: Estimated GFR < 15 mL/min/1.73m2 06/11/2025 11:0 4 AM EDT 06/11/2025 11:04 AM EDT us Rajendra Cortez MD LAB BLOOD ORDERABLES Final Resul t Performing Organization Address City/[facility] Co de Phone Number [place] See order comments [place] [address] * Vitamin D 25 Hydroxy (06/11/2025 11:04 AM EDT) Vitamin D, 25-Hydroxy 84.8 >30 ng/mL See order comments Comment: Health Based Reference Values* < 20 ng/mL Deficient 20-30 ng/mL Insufficient > 30 ng/mL Sufficient *Kellie JUNG. N Engl J Med. 2007;357:266-280 There is no well-established upper level of normal vitamin D levels. Some laboratories use 50 ng/mL as an upper limit of normal. However, toxicity is patient-dependent and may occur at any level. Careful correlation with the patient's presentation is necessary and, if there is concern for vitamin D toxicity, treatment should be considered irrespective of the serum level. Care must be taken in interpreting Vitamin D results from different laboratories and methodologies. Published data demonstrated that results from patients undergoing hemodialysis may show a negative bias when tested with various automated 25-OH vitamin D assays when compared to LC-MS/MS. When testing samples from patients whose predominant form of Vitamin D is Vitamin D2, such as patients receiving Vitamin D2 supplementation, results that are subtherapeutic should be confirmed with another method such as LC-MS/MS. 06/11/2025 11:0 4 AM EDT 06/11/2025 11:04 AM EDT us Rajendra Cortez MD LAB BLOOD ORDERABLES Final Resul t Performing Organization Address [facility] Phone Number [facility] See order comments [place] [address] * (ABNORMAL) BUN (06/11/2025 11:04 AM EDT) BUN 21(H) 9 - 16 mg/dL See order comments 06/11/2025 11:0 4 AM EDT 06/11/2025 11:04 AM EDT us Rajendra Cortez MD LAB BLOOD ORDERABLES Final Resul t Performing Organization Address [facility] Phone Number [place] See order comments [place] [address] * Calcium (06/11/2025 11:04 AM EDT) Calcium 9.3 8.4 - 10.2 mg/dL See order comments 06/11/2025 11:0 4 AM EDT 06/11/2025 11:04 AM EDT us Rajendra Cortez MD LAB BLOOD ORDERABLES Final Resul t Performing Organization Address [facility] Phone Number [place] See order comments [place] [address] * Electrolyte panel (06/11/2025 11:04 AM EDT) Sodium 138 135 - 145 mmol/L See order comments Potassium 5.0 3.3 - 5.1 mmol/L See order comments Chloride 101 96 - 108 mmol/L See order comments Bicarbonate (CO2) 26 22 - 29 mmol/L See order comments Anion Gap 16 12 - 20 See order comments 06/11/2025 11:0 4 AM EDT 06/11/2025 11:04 AM EDT us Rajendra Cortez MD LAB BLOOD ORDERABLES Final Resul t [place] See order comments [place] [address] from Last [address] [place] [address] Care Teams Sweeper Operator Highways Relationship Specialty Start Date End Date Maikol Benítez MD 1960 [place] [address] PCP - General Internal Medicine 10/13/24
== END 2025-07-18 13:35 | disposition home or self-care (01) ==
LOC: HO.HMCC 12:49
PROVIDERS: PCP Internal Medicine; Visit Provider Internal Medicine
DX: Z00.01 Encounter for general adult medical examination with abnormal findings (principal); I10 Essential (primary) hypertension; H47.22 Hereditary optic atrophy; E11.22 Type 2 diabetes mellitus with diabetic chronic kidney disease; F41.1 Generalized anxiety disorder; E78.5 Hyperlipidemia, unspecified; H91.93 Unspecified hearing loss, bilateral; Z71.89 Other specified counseling; Z12.4 Encounter for screening for malignant neoplasm of cervix; N18.30 Chronic kidney disease, stage 3 unspecified; L29.9 Pruritus, unspecified; Z00.00 Encounter for general adult medical examination without abnormal findings

== ENCOUNTER → 2025-07-18 12:49 | Outpatient (BNVA) | payer OTHER, SELFPAY | PROVIDERS: PCP Internal Medicine; Visit Provider Internal Medicine | DX: Z00.01 Encounter for general adult medical examination with abnormal findings (principal); E11.22 Type 2 diabetes mellitus with diabetic chronic kidney disease; I12.9 Hypertensive chronic kidney disease with stage 1 through stage 4 chronic kidney disease, or unspecified chronic kidney disease; N18.30 Chronic kidney disease, stage 3 unspecified; L29.9 Pruritus, unspecified; E78.5 Hyperlipidemia, unspecified; H47.22 Hereditary optic atrophy; F41.1 Generalized anxiety disorder; H91.93 Unspecified hearing loss, bilateral | CPT/HCPCS: 96127; 99396; 99497 ==

== ENCOUNTER 2025-10-04 10:29 | Outpatient (AMB) | payer OTHER, SELFPAY ==
[2025-10-04 10:31] VITALS: BP 128/64; PULSE 99; TEMP 36.5; O2SAT 100; BMI 24.2
--- NOTE | 2025-10-04 10:31 | AM.OFFWIN_ITS ---
Intake Vital Signs 10/04/25 10:31 Height 5 ft 1 in Weight 128 lb BMI 24.2 BP 128/64 Blood Pressure Location Lt brachial Position Sitting Pulse 99 Pulse Source Pulse Oximeter Temp 97.7 F Temp Source Oral Pulse Oximetry (%) 100 Oxygen Delivery Method Room Air Intake Visit Reasons: EP Rash on neck, both arms, back Intake Note: Patient presents with c/o itchy, red, bumpy rash on neck, bilateral arms & back x3 days Patient Tobacco Use Status: Former Tobacco user Allergies No Known Allergies Allergy (Verified 10/04/25 10:33) Do you need a note to return to daycare/school/sports/work: No HPI HPI Comments History of Present Illness Details History of Present Illness - The patient is a 65-year-old female pr esenting with a itchy rash, can't stop itching. - The rash developed four days ago and i s located on the arms, back of her neck, and a patch on her lower back. - The patient reports severe itching and has been scratching the affected areas. - The patient applied a lotion previousl y used for a similar rash on her hands during the pandemic, but it has not been effective. - The patient denies any new lotions, so aps, or detergents. - The patient has a history of dry scalp , for which she uses an dhgu-[id number]-dazgxoi hydrocortisone lotion as recommended by her physician. She tells me she has been using it since early July but it's not working well. - other than that, she denies any new lo tions, soaps or medications. - The patient has diabetes mellitus Review of Systems - Dermatological: Reports pruritic rash on arms, neck, back, and lower back for four days.l. - General: Denies new lotions, soaps, or detergents. All systems reviewed and are unremarkable except as noted in HPI Physical Exam General: Cooperative, healthy appearing, comfortable, no acute distress and well developed Orientation: Patient oriented x3 Limitations: No limitations Head: Normal to inspection Ears: Hearing grossly normal bilaterally Nose: Normal External nose present Face and sinus: Normal facial exam Eyes: Appearance normal, both eyes and all related structures Neck: Normal visual inspection and Yes full ROM Respiratory: Normal respiratory effort and able to speak in complete sentences. Skin: pinpoint areas of erythema with excoriation on bilateral arms, 2cm area on the posterior neck, and 2cm area on lower back Neuro: Patient oriented x3 Extremities: Normal to inspection [facility] Medical History (Updated 10/04/25 @ 10:56 by Amanda Hernandez PA-C) CKD stage 3 secondary to diabetes Decreased hearing of both ears Dyslipidemia Generalized anxiety disorder Lebers optic atrophy Type 2 diabetes mellitus without complication, without long-term current use of insulin Hyperlipidemia Essential hypertension Surgical History [place] teeth extracted Family History Father Brain cancer Lung cancer Mental health disorder Mother HTN (hypertension) Diabetes mellitus Breast cancer Sister HTN (hypertension) Skin cancer Paternal Grandfather Stomach cancer Maternal Aunt Multiple sclerosis Brother No problems noted. Sister No problems noted. Sister No problems noted. Social History Housing: House Alcohol intake: former Patient Tobacco Use Status: Former Tobacco user e-Cigarette/Vaping Use: Never Used Current occupational status: employed Cognitive needs: No Hearing needs: No Vision needs: Yes Physical Exam Vital Signs: Last Vital Signs Temp 97.7 F 10/04/25 10:31 Pulse 111 H 10/04/25 10:31 BP 128/64 10/04/25 10:31 Pulse Ox 100 10/04/25 10:31 Oxygen Delivery Method Room Air 10/04/25 10:31 BMI result Body Mass Index 24.2 Assessment & Plan Assessment & Plan (1) Contact dermatitis: Code(s): L25.9 - Unspecified contact dermatitis, unspecified cause Qualifiers: Contact dermatitis type: irritant Contact dermatitis trigger: unspecified trigger Qualified Code(s): L24.9 - Irritant contact dermatitis, unspecified cause Plan: Plan Patient was informed and verbally consented to the use of an ambient scribe for clinic note documentation during this visit. Pruritic Rash - It is important to identify what caused the rash, today it is unclear. - You can take Benadryl for the itching at night but it may make you tired during the day. - Initiate treatment with clobetasol cream, applied twice daily for 7-10 days, avoiding face and genitals. - Educate patient on washing hands after application and avoiding use on thin skin areas. - Consideration of diabetes in treatment plan, opting for topical treatment to avoid hyperglycemia associated with systemic steroids. Medications: New clobetasol 0.05% Do not use on hands, face or genitals. Please wash your hands after applying this medication or use gloves 1 appl topical BID 60 grams 0RF 10 days Coding Level of Care Code Est Pt Level 3 (42023) Diagnoses Irritant contact dermatitis, unspecified trigger L24.9 Contact dermatitis type: irritant Contact dermatitis trigger: unspecified trigger
== END 2025-10-04 10:55 | disposition home or self-care (01) ==
PROVIDERS: PCP Internal Medicine; Visit Provider Physician Assistant
DX: L24.9 Irritant contact dermatitis, unspecified cause (principal)

== ENCOUNTER → 2025-10-04 10:29 | Outpatient (BNVA) | payer OTHER, SELFPAY | PROVIDERS: PCP Internal Medicine; Visit Provider Physician Assistant | DX: L24.9 Irritant contact dermatitis, unspecified cause (principal) | CPT/HCPCS: 99212 ==

== ENCOUNTER 2025-10-19 10:49 | Outpatient (AMB) | payer OTHER, SELFPAY ==
[2025-10-19 10:50] VITALS: BP 128/76; PULSE 82; O2SAT 99; BMI 23.4
--- NOTE | 2025-10-19 10:50 | AM.OFFWIN_ITS ---
Intake Vital Signs 10/19/25 10:50 Height 5 ft 1 in Weight 124 lb BMI 23.4 BP 128/76 Blood Pressure Location Lt brachial Position Sitting Pulse 82 Pulse Source Pulse Oximeter Pulse Oximetry (%) 99 Oxygen Delivery Method Room Air Intake Visit Reasons: EP scalp and body very itches Intake Note: Patient presents c/o really itchy scalp - ongoing problem for a few months. Has tried OTC treatments with no relief. Patient Tobacco Use Status: Former Tobacco user Allergies No Known Allergies Allergy (Verified 10/19/25 10:56) HPI HPI Comments History of Present Illness Details Patient is a 65yo F who presents to office with itching She said in July she started with itching to her scalp which is constant She said now she feels as though the itching is moving all over her body to upper neck, lower back and arms She was seen 10/04 and given clobisterol cream which she said burned She also was trying OTC scalp relief salicylic acid Patient is requesting to see a skin doctor No fever or chills Can not recall any new soaps, lotions, shampoos or detergant (switched to sensitive) No discharge or drainage from scalp Has not tries anything else No CP or SOB Pt does not visualize a rash PFS Medical History (Updated 10/19/25 @ 11:15 by Giana Macdonald PA-C) CKD stage 3 secondary to diabetes Decreased hearing of both ears Dyslipidemia Generalized anxiety disorder Lebers optic atrophy Type 2 diabetes mellitus without complication, without long-term current use of insulin Hyperlipidemia Essential hypertension Surgical History [place] teeth extracted Family History Father Brain cancer Lung cancer Mental health disorder Mother HTN (hypertension) Diabetes mellitus Breast cancer Sister HTN (hypertension) Skin cancer Paternal Grandfather Stomach cancer Maternal Aunt Multiple sclerosis Brother No problems noted. Sister No problems noted. Sister No problems noted. Social History Housing: House Alcohol intake: former Patient Tobacco Use Status: Former Tobacco user e-Cigarette/Vaping Use: Never Used Current occupational status: employed Cognitive needs: No Hearing needs: No Vision needs: Yes Review of Systems Const Denies chills and Denies fever(s) Eyes Denies change in vision ENT Denies sore throat, Denies throat swelling and Denies tongue swelling Card Denies chest pain and Denies dyspnea Resp Denies dyspnea Musc Denies back pain Skin/Breast Reports pruritus Aller/Immun Denies throat swelling and Denies tongue swelling Physical Exam Exam Exam: General: Non-toxic, NAD. Speaking full sentences. Skin: Warm dry throughout. Pt has dry erythematous skin to posterior scalp along posterior auricular and occipital region There is no lice nits noted. + dandruff notes. + dry slightly erythematous skin patches to posterior neck and lumbar midline back. + excoriations without bleeding noted to arms, posterior neck and lower back Eye: EOMI Respiratory: No accessory muscle use or stridor Cardiac: RRR. No murmur MSK: Full ROM extremities. Neurology: Alert. No aphasia or facial droop. Gait without abnormality Psych: Good mood and affect Vital Signs: Last Vital Signs Pulse 82 10/19/25 10:50 BP 128/76 10/19/25 10:50 Pulse Ox 99 10/19/25 10:50 Oxygen Delivery Method Room Air 10/19/25 10:50 BMI result Body Mass Index 23.4 Assessment & Plan Assessment & Plan (1) Pruritus of scalp: Code(s): L29.9 - Pruritus, unspecified Plan: Patient seen and evaluated. WIll tx with topical ketoconazole shampoo twice a week x 8 weeks Derm referral given Patient gave verbal understanding and had no additional questions or concerns at time of discharge All questions answered (2) Rash: Code(s): R21 - Rash and other nonspecific skin eruption Plan: 4 days prednisone given Pt aware of elevated sugar possibility. Take with Food. Avoid alcohol Pt also aware she can try OTC benadryl but this can cause lethargy. She gave verbal understanding and had no additional questions. Orders: Referrals Dermatology Referral L29.9 - Pruritus, unspecified, R21 - Rash and other nonspecific skin eruption Medications: New ketoconazole 2% Apply 2 times per week for 8 weeks. 1 appl topical 2XW 120 mL 0RF prednisone 40 mg (2 x 20 mg) PO DAILY 8 tabs 0RF Coding Level of Care Code Est Pt Level 3 (25885) Diagnoses Pruritus of scalp L29.9 Rash R21
--- OUTSIDE RECORDS SUMMARY | 2025-10-19 13:12 | XMS_ITS | Clinical Summary ---
Author Organization [facility] Address [address] [place] [phone] Phone Care Team Providers Care Metal Coater Name Role Phone Maikol Benítez MD Primary Care Provider +1- [phone] Allergies No known active allergies Medications atorvastatin [...] and 100 mg in the evening. Active [place]-3 Fatty Acids (Fish Oil) 1200 MG capsule [...] Optic atrophy 12/17/2024 Essential (primary) hypertension 12/17/2024 Social History Tobacco Use Types Packs/Day Years [...] Office Visit [facility] [address] [phone] Rajendra Cortez MD [facility] [address] [phone] Health Maintenance Due Date Last [...] on patient's age to complete this topic Insurance [facility] Care Teams Metal Coater Relationship Specialty Start Date End Date Maikol Benítez MD PCP - General Internal Medicine 10/13/24
== END 2025-10-19 11:22 | disposition home or self-care (01) ==
PROVIDERS: PCP Internal Medicine; Visit Provider Physician Assistant
DX: L29.9 Pruritus, unspecified (principal); R21 Rash and other nonspecific skin eruption

== ENCOUNTER → 2025-10-19 10:49 | Outpatient (BNVA) | payer OTHER, SELFPAY | PROVIDERS: PCP Internal Medicine; Visit Provider Physician Assistant | DX: L29.9 Pruritus, unspecified (principal); R21 Rash and other nonspecific skin eruption | CPT/HCPCS: 99212 ==

== ENCOUNTER 2025-11-21 11:58 | Outpatient (AMB) | payer OTHER, SELFPAY ==
[2025-11-21 13:01] VITALS: BP 122/78; PULSE 105; O2SAT 100; BMI 23.4
--- NOTE | 2025-11-21 13:01 | AM.OFFWIN_ITS ---
Intake Vital Signs 11/21/25 13:01 Height 5 ft 1 in Weight 124 lb BMI 23.4 BP 122/78 Blood Pressure Location Lt brachial Position Sitting Pulse 105 H Pulse Source Pulse Oximeter Pulse Oximetry (%) 100 Oxygen Delivery Method Room Air Intake Visit Reasons: EP-body rash Intake Note: Patient returns c/o dry, red, itchy rash on arms & legs - creams & shampoos not helpful. Patient also mentions she has lice & would like it to be treated. Patient Tobacco Use Status: Former Tobacco user Allergies No Known Allergies Allergy (Verified 11/21/25 13:05) HPI HPI Comments History of Present Illness0 Details 65-year-old female presents to the walk- in clinic with complaint of very itchy, dry scalp rash. She reports she was seen in this clinic a few weeks ago and was diagnosed with seborrheic dermatitis. She was prescribed ketoconazole shampoo to be used for 8 weeks but reports she only used it twice and stopped because she felt ?it did not work.? She was referred to Dermatology (Dr. Ram) but has not scheduled an appointment, stating ?I?m busy.? Patient is concerned she may have lice and reports using OTC lice treatments without relief. Denies fever, chills, scalp pain, drainage, or hair loss. [facility] Medical History (Updated 11/21/25 @ 13:46 by Ankita Ortiz NP) Seborrheic dermatitis CKD stage 3 secondary to diabetes Decreased hearing of both ears Dyslipidemia Generalized anxiety disorder Lebers optic atrophy Type 2 diabetes mellitus without complication, without long-term current use of insulin Hyperlipidemia Essential hypertension Surgical History [place] teeth extracted Family History Father Brain cancer Lung cancer Mental health disorder Mother HTN (hypertension) Diabetes mellitus Breast cancer Sister HTN (hypertension) Skin cancer Paternal Grandfather Stomach cancer Maternal Aunt Multiple sclerosis Brother No problems noted. Sister No problems noted. Sister No problems noted. Social History Housing: House Alcohol intake: former Patient Tobacco Use Status: Former Tobacco user e-Cigarette/Vaping Use: Never Used Current occupational status: employed Cognitive needs: No Hearing needs: No Vision needs: Yes Review of Systems Const All systems reviewed & are unremarkable except as noted in HPI and below Physical Exam Vital Signs: Last Vital Signs Pulse 105 H 11/21/25 13:01 BP 122/78 11/21/25 13:01 Pulse Ox 100 11/21/25 13:01 Oxygen Delivery Method Room Air 11/21/25 13:01 BMI result Body Mass Index 23.4 Const General: no acute distress Nutritional Appearance: well nourished Orientation/consciousness: patient oriented x3 Skin Other: Scalp: Diffuse dry, flaky scaling noted throughout scalp with mild erythema. No open lesions, no crusting, no pustules. Erythematous Patches covering Upper extremities with excoriations. No nits or live lice visualized. Neuro General: patient oriented x3, gait normal and moves all extremities Psych Speech and movement: Normal speech and movement present Assessment & Plan Assessment & Plan (1) Seborrheic dermatitis: Code(s): L21.9 - Seborrheic dermatitis, unspecified Plan: Seborrheic dermatitis of the scalp ? persistent, likely due to non-adherence to treatment. Pruritic scalp. Educated patient on seborrheic dermatitis, emphasizing that ketoconazole shampoo requires consistent use over several weeks to be effective. Advised to restart ketoconazole 2% shampoo: Use 2?3 times weekly, leave on scalp for 5 minutes before rinsing. Ordered Fluconazole 150 mg q3days for 3 doses. Advised against further lice treatments as no evidence of lice on exam Reinforced importance of Dermatology follow-up with Dr. Ram for persistent symptoms Recommended scheduling Derm appointment as previously referred. Medications: New fluconazole 150 mg PO Q3D 3 tabs 2RF 3 days L21.9 - Seborrheic dermatitis, unspecified Refilled ketoconazole 2% Apply 2 times per week for 8 weeks. 1 appl topical 2XW 120 mL 1RF L21.9 - Seborrheic dermatitis, unspecified Coding Level of Care Code Est Pt Level 4 (68231) Diagnoses Seborrheic dermatitis L21.9 Time Spent (min) 20
--- OUTSIDE RECORDS SUMMARY | 2025-11-21 14:02 | XMS_ITS | Clinical Summary ---
Author Organization [facility] Address [address] [place] [phone] Phone Care Team Providers Care Kst Operator Name Role Phone Maikol Benítez MD Primary Care Provider +1- [phone] Allergies No known active allergies Medications atorvastatin [...] and 100 mg in the evening. Active [place]-3 Fatty Acids (Fish Oil) 1200 MG capsule [...] Office Visit [facility] [address] [phone] Rajendra Cortez MD [facility] [address] [address] Health Maintenance Due Date Last [...] patient's age to complete this topic Insurance [facility] Care Teams Kst Operator Relationship Specialty Start Date End Date Maikol Benítez MD PCP - General Internal Medicine 10/13/24
== END 2025-11-21 13:52 | disposition home or self-care (01) ==
PROVIDERS: PCP Internal Medicine; Visit Provider Nurse Practitioner Family
DX: L21.9 Seborrheic dermatitis, unspecified (principal)

== ENCOUNTER → 2025-11-21 11:58 | Outpatient (BNVA) | payer OTHER, SELFPAY | PROVIDERS: PCP Internal Medicine; Visit Provider Nurse Practitioner Family | DX: L21.9 Seborrheic dermatitis, unspecified (principal) | CPT/HCPCS: 99212 ==